=== PATIENT | male | born 1930 | race Caucasian/White ===

== ENCOUNTER 2018-04-28 19:50 | Inpatient (IN) | payer MEDICARE, MEDICAID ==
--- NOTE | 2018-04-28 20:27 | RAD ---
FRONTAL RADIOGRAPH CHEST PORTABLE SUPINE: 04/28/18 COMPARISON: 08/31/16 HISTORY: Found unresponsive. Supine imaging is provided, limiting assessment for pneumothorax and pleural fluid. Midline sternotom y wires and mediastinal clips are present. The lungs appear mildly hyperinflated with no focal consol idation or alveolar edema. Nodular density in right lung base likely represents a nipple shadow. IMPRESSION: No acute findings. POS: [facility]
[2018-04-28 20:46] LABS: Hemoglobin 15.3 g/dL (14.0-18.0); Mean Corpuscular HGB CONC 33.1 g/dL (32.0-36.0); Mean Corpuscular Hemoglobin 32.3 pg (27.0-31.0); Mean Corpuscular Volume 97.5 fl (80.0-94.0); Mean Platelet Volume 9.8 fL (7.4-10.4); Platelet Count 145 thou/uL (130-400); Red Blood Cell (RBC) Count 4.75 mill/uL (4.70-6.10); White Blood Cell (WBC) Count 21.9 thou/uL (4.8-10.8)
--- NOTE | 2018-04-28 20:58 | CT ---
CERVICAL SPINE CT WITHOUT CONTRAST 04/28/18 COMPARISON: None. HISTORY: Unresponsive patient, dehydration. TECHNIQUE: Serial axial CT imaging at 2.5 mm intervals from skull base through lung apices without contrast. Cor onal and sagittal reformatted imaging obtained. FINDINGS: C1 ring is intact. Craniocervical junction, dens, C1-2 articulation, occipital condyles, and cervicot horacic junction demonstrate no acute findings. There is diffuse osteopenia. Imaged lung apices unrem arkable. Multilevel mild bilateral uncovertebral osteophyte formation noted. There is disc space narrowing wit h degenerative end plate change at C3-4, C4-5, C5-6 and C6-7. No prevertebral soft tissue swelling. N o anterolisthesis or retrolisthesis. No displaced fracture or evidence of dislocation. IMPRESSION: Degenerative change with no acute osseous abnormality seen. POS: [facility]
--- NOTE | 2018-04-28 21:00 | CT ---
CT OF THE HEAD WITHOUT CONTRAST: 04/28/18 COMPARISON: None. HISTORY: Unresponsive, dehydration. TECHNIQUE: Serial axial CT imaging at 5 mm intervals from vertex through skull base without contrast. FINDINGS: The imaged paranasal sinuses/mastoid air cells are well aerated. There is no displaced calvarial frac ture. There is no intracranial hemorrhage, midline shift, or mass effect. There is diffuse cerebral volume loss with associated prominence of the CSF containing spaces. IMPRESSION: Cerebral volume loss with no intracranial hemorrhage or displaced calvarial fracture. POS: [facility]
[2018-04-28 21:06] LABS: Band 7 % (5-11); Lymphocytes 4 % (21-51); MDiff Complete? YES; Monocytes 22 % (0-10); Neutrophil 67 % (42-75); PLT Morphology Comment Appears Adequate; RBC Morphology Normal
[2018-04-28 21:15] LABS: CKMB 15.3 ng/mL (0-6.6); Troponin I 0.737 ng/mL (< 0.028)
[2018-04-28 21:15] LABS: ALT (SGPT) 50 U/L (8-55); AST (SGOT) 45 U/L (5-34); Albumin 3.1 g/dL (3.4-4.8); Alkaline Phosphatase 56 U/L (40-150); Anion Gap 22 mmol/L (10-20); BUN (Urea Nitrogen) 121 mg/dL (8.4-25.7); CK (CPK) 1363 U/L (30-200); Calc. Creatinine Clearance 0 mL/min (70-130); Calcium 8.5 mg/dL (7.8-10.44); Carbon Dioxide 14 mmol/L (23-31); Chloride 133 mmol/L (98-107); Estimated GFR-MDRD 6; Glucose 145 mg/dL (83-110); Potassium 4.1 mmol/L (3.5-5.1); Protein, Total 6.1 g/dL (5.8-8.1); Sodium 165 mmol/L (136-145)
[2018-04-28] MEDS ORDERED: Diltiazem HCl 125 MG, Admixture Fee 1 EACH in Sodium Chloride 0.9% 100 ML IVPB SCH (21:45)
[2018-04-28 22:04] LABS: Acetaminophen Less than 6.0 mcg/mL (10.0-30.0); Alcohol Less than 10 mg/dL (Less than 10); Salicylate Less than 8.0 mg/dL (15.0-30.0)
--- NOTE | 2018-04-28 22:26 | CT ---
CT OF ABDOMEN AND PELVIS 04/28/18 COMPARISON: None. HISTORY: Unresponsive patient, tachycardia, dehydration. TECHNIQUE: Serial axial CT imaging obtained at 5 mm intervals from the lung bases through the pubic symphysis wi thout contrast. Coronal reformatted imaging obtained. FINDINGS: Lack of contrast media limits assessment of the viscera, bowel, vascular structures and for lymphaden opathy. Midline sternotomy wires are visualized. Imaged lung bases unremarkable. No free intraperitoneal air or fluid. Gallbladder is mildly distended. Liver, spleen, pancreas, adrenal glands, and kidneys are unremarkabl e. There is mild fatty atrophy of the pancreas. Urinary bladder is mildly thick walled. There is a punctate focus of gas within the ventral aspect of the urinary bladder on image 68. Question recent Traore catheterization. Otherwise, fistulous communi cation with bowel is a possibility. Prostate gland is mildly prominent. Extensive diverticulosis of t he sigmoid colon noted with no evidence for diverticulitis. The appendix appears grossly unremarkable. There are a few distal decompressed small bowel loops which demonstrate mild wall prominence which ma y be on the basis of underdistention or thickening. There is venous gas noted in bilateral inguinal r egions, presumably associated with intravenous access. There is extensive atherosclerotic calcificati on of the abdominal aorta and its branches. Osseous structures demonstrate no acute findings. IMPRESSION: 1. Wall prominence of multiple distal small bowel loops which could signify underdistention or t hickening on the basis of enteritis. No free intraperitoneal air or evidence of bowel obstruction. 2. Diverticulosis without evidence for diverticulitis. 3. Atherosclerotic disease of the aorta and its branches. 4. Punctate focus of gas within the urinary bladder. POS: [facility]
[2018-04-28] MEDS ORDERED: Enoxaparin Sodium 60 MG/0.6 ML SYRINGE ONE (22:39)
[2018-04-28 23:10] LABS: Bilirubin Moderate (Negative); Blood, Urine Large (Negative); Glucose, Urine (Dipstick) Negative (Negative); Leukocyte Large (Negative); Nitrite Positive (Negative); Protein, Urine (Dipstick) 100 mg/dL (Neg-Trace); Specific Gravity, Urine 1.025 (1.005-1.030)
[2018-04-28 23:11] LABS: Pathc Cast-AUWi Flag 0.29 (0-2.49)
[2018-04-28 23:14] LABS: Clarity Cloudy (Clear)
[2018-04-28 23:18] LABS: Amphetamine Not Detected (NotDetected); Barbiturates Screen Not Detected (NotDetected); Benzodiazepine Screen Not Detected (NotDetected); Cocaine Metabolite Screen Not Detected (NotDetected); Medtox Control Line Valid? VALID (VALID); Medtox Reader # READER 1; Methadone Not Detected (NotDetected); Methamphetamine Not Detected (NotDetected); Opiate Screen Not Detected (NotDetected); Oxycodone Screen Not Detected (NotDetected); Phencyclidine (PCP) Not Detected (NotDetected); THC/Cannabinoid Screen Not Detected (NotDetected); Tricyclic Screen Not Detected (NotDetected)
[2018-04-28 23:22] LABS: RBC/HPF GREATER THAN 50-TNTC HPF (0-3)
[2018-04-28 23:23] LABS: Squamous Epithelial None Seen HPF (0-3)
[2018-04-28 23:24] LABS: Bacteria/HPF 2+ HPF (None Seen)
[2018-04-28 23:26] LABS: Hyaline Casts/LPF 7-10 HYALINE CAST LPF (0-3 Hyaline)
[2018-04-28] MEDS ORDERED: cefTRIAXone\\ROCEPHIN 2 GM in Sodium Chloride 0.9% 100 ML IVPB SCH (23:45)
[2018-04-29 01:15] LABS: Lactic Acid 4.1 mmol/L (0.5-2.2)
[2018-04-29] MEDS ORDERED: Amiodarone HCl 150 MG, Admixture Fee 1 EACH in Dextrose 5% in Water 100 ML IVPB SCH (02:30)
[2018-04-29 03:07] LABS: ALT (SGPT) 50 U/L (8-55); AST (SGOT) 59 U/L (5-34); Alkaline Phosphatase 54 U/L (40-150); Bilirubin, Direct 1.3 mg/dL (0.1-0.3); Bilirubin, Total 1.8 mg/dL (0.2-1.2); Magnesium 2.8 mg/dL (1.6-2.6); Protein, Total 5.7 g/dL (5.8-8.1)
[2018-04-29] MEDS: Amiodarone HCl 450 MG, Admixture Fee 1 EACH in Dextrose 5% in Water 250 ML IVPB SCH (10:41)
[2018-04-29] MEDS ORDERED: hydrALAZINE 20 MG/ML VIAL SLOW IVP PRN (12:44)
[2018-04-29] MEDS ORDERED: Ondansetron HCl/PF 4 MG/2 ML Vial IVP PRN (12:44)
[2018-04-29] MEDS ORDERED: cloNIDine 0.1 MG TAB PO PRN (12:44)
[2018-04-29] MEDS ORDERED: Acetaminophen 500 MG TAB PO PRN (12:44)
[2018-04-29] MEDS ORDERED: Ondansetron ODT 4 MG TAB PO PRN (12:44)
[2018-04-29 13:36] LABS: Hemoglobin 15.5 g/dL (14.0-18.0); Mean Corpuscular Hemoglobin 32.7 pg (27.0-31.0); Mean Corpuscular Volume 99.2 fl (80.0-94.0); Mean Platelet Volume 10.8 fL (7.4-10.4); Platelet Count 145 thou/uL (130-400); RBC Distribution Width 13.3 % (11.5-14.5); Red Blood Cell (RBC) Count 4.74 mill/uL (4.70-6.10); White Blood Cell (WBC) Count 40.5 thou/uL (4.8-10.8)
[2018-04-29 13:41] LABS: Anion Gap 21 mmol/L (10-20); Calc. Creatinine Clearance 5 mL/min (70-130); Calcium 8.2 mg/dL (7.8-10.44); Carbon Dioxide 12 mmol/L (23-31); Estimated GFR-MDRD 6; Glucose 142 mg/dL (83-110); Potassium 4.7 mmol/L (3.5-5.1); Sodium 160 mmol/L (136-145)
[2018-04-29 13:44] LABS: Band 13 % (5-11); Burr Cells SLIGHT = 2-5 cells (100X) (0-1/hpf); Lymphocytes 1 % (21-51); MDiff Complete? YES; Monocytes 11 % (0-10); Neutrophil 75 % (42-75); PLT Morphology Comment Appears Adequate
[2018-04-29] MEDS ORDERED: Vancomycin HCl 1 GM in Sodium Chloride 0.9% 250 ML 250 ML IVPB SCH (13:45)
[2018-04-29 13:50] LABS: Chloride 132 mmol/L (98-107)
[2018-04-29 13:52] LABS: BUN (Urea Nitrogen) 130 mg/dL (8.4-25.7)
[2018-04-29] MEDS: Sodium Chloride 0.9% 1,000 ML IV SCH ×2 (14:00→22:15)
--- NOTE | 2018-04-29 14:13 | RAD ---
LEFT HIP 2 VIEWS: Date: 04/29/18 HISTORY: Hip pain status post fall. FINDINGS: There are no signs of fracture or dislocation. IMPRESSION: Negative left hip. POS: [facility]
[2018-04-29] MEDS ORDERED: Vancomycin HCl 1 GM in Premix Bag 1 BAG IVPB SCH (15:00)
--- NOTE | 2018-04-29 15:11 | HP ---
DATE OF ADMISSION: 04/29/2018 PRIMARY CARE PHYSICIAN: Dr. Sreekanth Bailey. CHIEF COMPLAINT: Unresponsive, found down. HISTORY OF PRESENT ILLNESS: This is an 88-year-old male who apparently was found by his ne joselito in a converted school bus to dwelling where the patient was unresponsive on the floor of the [facility]. The patient apparently was last seen normal 1 week prior to the neighbor finding him on the floo r of the bus. The patient was noted severely dehydrated as well as a core temperature of 99.9 degree s Fahrenheit. The patient apparently had been living in the converted bus to dwelling without family or close contacts. The patient apparently was completely naked when found according to EMS reports. The patient is unable to provide any significant history due to altered mentation and no family wit h the patient. EMS initially reported the patient was tachycardic and was receiving intravenous flui ds. The patient was also incidentally noted in atrial fibrillation with rapid ventricular response. The patient was given diltiazem bolus and then infusion in the emergency room and then transitioned to amiodarone. The patient was noted with multiple metabolic derangements on screening survey showin g hypernatremia with sodium of 165. Creatinine was elevated 8.45 and lactic acidosis was noted up to 9.0. The patient also received Rocephin 2 grams x1 dose after concern for urinary tract infection. PAST MEDICAL HISTORY: 1. Benign prosthetic hyperplasia. 2. History of urethral strictures. 3. Aortic stenosis, status post mechanical aortic valve replacement, on chronic anticoagulation with Coumadin. PAST SURGICAL HISTORY: 1. Status post mechanical aortic valve replacement at age 71. 2. History of urethral strictures status post laser ablation and transurethral resection of the pros ledesma. 3. Status post dental extraction. 4. Status post tonsillectomy. CURRENT MEDICATIONS: Unobtainable due to patient's altered mentation. ALLERGIES: No known drug allergies. FAMILY HISTORY: Mother at age 82. Father at age 62 of leukemia. SOCIAL HISTORY: The patient is , now single. 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 [employer] . No current alcohol, tobacco or illicit drug use. Resides indepe ndently in the [place] area. REVIEW OF SYSTEMS: Unobtainable due to patient's altered mentation. PHYSICAL EXAMINATION: VITAL SIGNS: Currently, blood pressure 115/57, pulse 73, respiratory rate 26, temperature 97.8 degre es Fahrenheit, O2 saturation 100% on room air. GENERAL APPEARANCE: This is an 88-year-old male, sitting on the hospital bed, alert and or iented x1 to name. Disheveled. HEENT: Pupils are equal, round, and reactive to light and accommodation. Extraocular muscles are in tact. Conjunctival injection noted in the left eye with mild crusting and exudate. Nares patent. O P: Poor dentition with approximately three teeth noted. Oral mucosa dry with dried mucus in the hyp opharynx. NECK: Supple, no cervical adenopathy, no thyromegaly, no carotid bruits. There is no JVD appreciate d. Cervical spine with full active and passive range of motion. CHEST: Lungs are clear to auscultation bilaterally. CARDIOVASCULAR: S1, S2 without noted murmur, rub or gallop. ABDOMEN: Scaphoid, tender to palpation diffusely. No palpable mass. Bowel sounds are positive. EXTREMITIES: Generalized muscle atrophy noted. Pulses palpable distally at the dorsalis pedis, post erior tibial, and popliteal arteries bilaterally. Capillary refill less than 2 seconds. GENITOURINARY: Traore catheter in place with dark osmel urine. SKIN: Abrasion and pressure ulcer noted at the sacrum and left greater trochanter region. NEUROLOGIC: Cranial nerves II-XII are grossly intact. Patient is alert and oriented x1 to name. No t observed ambulatory. Moves extremities on command. PERTINENT LABORATORY AND X-RAY FINDINGS: Sodium 165, potassium 4.1, chloride 133, CO2 of 14, anion g ap 22, BUN 121, creatinine 8.45, estimated GFR of 6, glucose 145. Lactic acid ranged between 4.1-9.0 , calcium 8.5, magnesium 2.8, total bilirubin ranged between 1.8-2.0, AST ranged between 45-59, total CK 1363. Troponin I 0.737. Albumin ranged between 3.0-3.1. TSH 0.52. CBC showed a white blood ce ll count 21.9, hemoglobin 15, hematocrit 46, MCV 98, platelet count 145 with 67% neutrophils. Urinal ysis positive for nitrite and bilirubin, large blood noted. Positive leukocyte esterase. Urine micr oscopy shows greater than 50 to too numerous to count rbc's and wbc's per high power field. Urine ba cteria 2+. Urine drug screen dated 04/28/2018 negative. Plasma alcohol level less than 10. EKG janel ed 04/28/2018 by my interpretation shows atrial fibrillation with rapid ventricular response, heart r ates in the 140s. Normal R-wave progression noted in the precordial leads. Normal axis. No acute S T-T wave changes appreciated. Telemetry monitoring currently shows sinus mechanism with heart rates in the 70s. Portable chest x-ray dated 04/28/2018, showed no acute cardiopulmonary process. CT of t he brain without contrast dated 04/28/2018 showed generalized volume loss without acute intracranial process. CT of the cervical spine dated 04/28/2018 showed degenerative changes without acute osseous abnormality. CT of the abdomen and pelvis dated 04/28/2018 showed no evidence of free intraperitone al air or bowel obstruction. Diverticulosis without diverticulitis noted. Wall prominence of the di stal small bowel noted. ASSESSMENT AND PLAN: 1. Acute metabolic/toxic encephalopathy. The patient will be admitted to the telemetry unit. Multi factorial process including severe dehydration, acute kidney injury, and suspected fall. We will con tinue supportive management for the problems outlined as stated below. Continue to monitor neurologi c status. 2. Severe dehydration. We will continue intravenous normal saline at 125 mL per hour. Continue to monitor fluid status after resuscitation. Encourage free water intake after clearance by speech ther apy after concern for dysphagia. 3. Acute kidney injury. Multifactorial including severe dehydration and altered mental status. We will continue IV fluids as outlined previously. Avoid nephrotoxic agents and contrast media. Serial creatinine assessment. Continue Traore catheter for accurate intake and output assessment. 4. Severe hypernatremia secondarily to severe dehydration. We will continue close monitoring of sod ium values. Recheck BMP now. 5. Lactic acidosis. Suspect metabolic derangement as outlined previously. Repeat lactic acid level now. Potential influence of urinary tract infection as well as underlying metabolic derangement as outlined previously. 6. Elevated troponin I. Suspect demand ischemia in the context of atrial fibrillation and rapid kristal tricular response. We will continue troponin I trending. Check 2D transthoracic echocardiogram. 7. Atrial fibrillation with rapid ventricular response. After patient initially managed in the [facility] room with IV diltiazem, the patient transitioned to amiodarone infusion. We will continue amio darone and monitor heart rate. Check 2D transthoracic echocardiogram. Suspect underlying stressors as etiology for atrial fibrillation. 8. Rhabdomyolysis secondarily to fall and prolonged condition of being found down. We will monitor serial total CK and continue IV fluids as outlined previously. 9. Urinary tract infection. Suspected given initial urinalysis. Urine culture pending. Continue R ocephin 2 g IV q.24 hours. 10. Abdominal pain. Exact etiology unclear. Suspect multifactorial given patient's presentation. Continue serial abdominal exams. CT of the abdomen and pelvis without an acute process identified. 11. Prophylaxis. Sequential compression devices while in bed. Pepcid 20 mg p.o. b.i.d. PT evaluat ion for functional assessment. 12. Code status is FULL. Surrogate medical decision maker not identified.
[2018-04-29] MEDS: Piperacillin/Tazobactam 2.25 GM in Sodium Chloride 0.9% 100 ML IVPB SCH ×2 (15:17→22:18)
[2018-04-29 15:41] LABS: Troponin I 1.346 ng/mL (< 0.028)
[2018-04-29 17:32] LABS: Lactic Acid 2.7 mmol/L (0.5-2.2)
[2018-04-29 17:50] LABS: Critical Call Chem Troponin I RESULT DECREASING
[2018-04-29] MEDS ORDERED: Aspirin 325 MG TAB PO SCH (20:30)
[2018-04-29] MEDS ORDERED: Famotidine 20 MG TAB PO SCH (21:00)
[2018-04-29] MEDS ORDERED: cefTRIAXone\\ROCEPHIN 2 GM in Sodium Chloride 0.9% 100 ML IVPB SCH (21:00)
[2018-04-29] MEDS ORDERED: Aspirin 300 MG Suppository PR SCH (22:30)
[2018-04-30 05:28] LABS: Band 15 % (5-11); Hemoglobin 13.2 g/dL (14.0-18.0); Lymphocytes 15 % (21-51); MDiff Complete? YES; Mean Corpuscular Hemoglobin 31.6 pg (27.0-31.0); Mean Corpuscular Volume 98.7 fl (80.0-94.0); Monocytes 9 % (0-10); Neutrophil 61 % (42-75); PLT Morphology Comment Appears Decreased; Platelet Count 120 thou/uL (130-400); RBC Distribution Width 13.3 % (11.5-14.5); Red Blood Cell (RBC) Count 4.18 mill/uL (4.70-6.10); White Blood Cell (WBC) Count 29.6 thou/uL (4.8-10.8)
[2018-04-30 05:42] LABS: BUN (Urea Nitrogen) 142 mg/dL (8.4-25.7)
[2018-04-30 05:52] LABS: ALT (SGPT) 47 U/L (8-55); AST (SGOT) 35 U/L (5-34); Albumin 2.5 g/dL (3.4-4.8); Alkaline Phosphatase 50 U/L (40-150); Anion Gap 20 mmol/L (10-20); Bilirubin, Total 0.8 mg/dL (0.2-1.2); Calc. Creatinine Clearance 5 mL/min (70-130); Calcium 7.8 mg/dL (7.8-10.44); Carbon Dioxide 12 mmol/L (23-31); Chloride 134 mmol/L (98-107); Estimated GFR-MDRD 6; Globulin 2.6 g/dL (2.4-3.5); Glucose 109 mg/dL (83-110); Protein, Total 5.1 g/dL (5.8-8.1); Sodium 161 mmol/L (136-145)
[2018-04-30] MEDS: Sodium Chloride 0.9% 1,000 ML IV SCH (06:31)
[2018-04-30] MEDS: Piperacillin/Tazobactam 2.25 GM in Sodium Chloride 0.9% 100 ML IVPB SCH ×3 (06:33→21:00)
[2018-04-30] MEDS: Amiodarone HCl 450 MG, Admixture Fee 1 EACH in Dextrose 5% in Water 250 ML IVPB SCH (06:36)
[2018-04-30] MEDS: Aspirin 325 mg Enteric Coated Tablet PO SCH (09:19)
[2018-04-30] MEDS ORDERED: Fentanyl 100 MCG/2 ML VIAL SLOW IVP PRN (09:40)
--- NOTE | 2018-04-30 09:41 | PDOC.PN ---
- Subjective Encounter Start Date: 04/30/18 (f/u hypernatremia) Encounter Start Time: 09:38 Subjective: Pt able to say a few words, awake, responds to commands -: denies any pain - Objective Resuscitation Status: Resuscitation Status FULL:Full Resuscitation Vital Signs & Weight: Vital Signs (12 hours) Temp Pulse Resp BP Pulse Ox 04/30/18 08:50 98.1 F 61 18 120/60 97 04/30/18 04:00 97.6 F 59 L 20 113/54 L 100 I&O: 04/29/18 04/30/18 05/01/18 06:59 06:59 06:59 Intake Total 3800 Output Total 850 Balance 2950 Result Diagrams: 04/30/18 04:47 04/30/18 17:14 EKG Reviewed by me: Yes (tele - sinus 60's) Phys Exam - Physical Examination Constitutional: NAD left eye partial ptosis, erythematous conjunctiva Respiratory: no wheezing, no rales, no rhonchi, clear to auscultation bilateral Cardiovascular: RRR, no significant murmur Gastrointestinal: soft, no distention, positive bowel sounds ttp throughout abd, no palpable abnormality, rebound or guarding Musculoskeletal: no edema Neurological: non-focal, moves all 4 limbs Deviation from normal: speech slightly slowed and garbled Deviation from normal: skin ulcer left hip Dx/Plan (1) Encephalopathy acute Code(s): G93.40 - ENCEPHALOPATHY, UNSPECIFIED Status: Acute (2) Hypernatremia Code(s): E87.0 - HYPEROSMOLALITY AND HYPERNATREMIA Status: Acute (3) Severe dehydration Code(s): E86.0 - DEHYDRATION Status: Acute (4) NENITA (acute kidney injury) Code(s): N17.9 - ACUTE KIDNEY FAILURE, UNSPECIFIED Status: Acute (5) Elevated troponin Code(s): R74.8 - ABNORMAL LEVELS OF OTHER SERUM ENZYMES Status: Acute (6) Rhabdomyolysis Code(s): M62.82 - RHABDOMYOLYSIS Status: Acute - Plan * ? of sepsis as source of pt being down - continue zosyn. Pt also with abd pain and enteritis on CT scan - continue abx, npo for now * encephalopathy - improved today, continue ivf, abx, speech therapy and pt ordered * * a fib - resolved, echo and cards consult ordered * * d/c rocephin as pt on zosyn * left eye conjunctivitis - erythromycin ointment * hypernatremia with NENITA - renal ultrasond, nephro consult, and change fluids to D5W. recheck bmp at 17:00 today * * dvt prophy - start heparin due to renal function * gi prophy - change to IV protonix * code status - presumed full * * pt remains at high risk in current condition.
[2018-04-30] MEDS ORDERED: Erythromycin Base 0.5% Oint 1 GM TUBE L EYE SCH (09:45)
[2018-04-30] MEDS ORDERED: Dextrose 5% in Water 1,000 ML IV SCH ×3 (09:45→18:20)
[2018-04-30] MEDS ORDERED: Pantoprazole 40 MG VIAL IVP SCH (10:00)
[2018-04-30] MEDS ORDERED: Heparin 5,000 UNITS/ML VIAL SC SCH (10:00)
--- NOTE | 2018-04-30 11:54 | ULT ---
BILATERAL RENAL ULTRASOUND: Date: 04/30/18 PROVIDED CLINICAL HISTORY: Acute renal failure. FINDINGS: Left kidney measures about 9.5 x 5.6 x 5.3 cm and demonstrates no evidence for hydronephrosis or mass . Right kidney measures about 9.8 x 4.5 x 4.8 cm and demonstrates no evidence for hydronephrosis or mas s. The urinary bladder is decompressed by a Traore catheter. Gallbladder appears moderately distended wit h internal sludge. IMPRESSION: No evidence for hydronephrosis. POS: [facility]
--- NOTE | 2018-04-30 14:39 | CON ---
DATE OF CONSULTATION: 04/30/2018 NEPHROLOGY CONSULT NOTE CONSULTING PHYSICIAN: Isabel Riggins M.D. REASON FOR CONSULTATION: Acute kidney injury. REASON FOR ADMISSION: Altered mentation. HISTORY OF PRESENT ILLNESS: This is an 88-year-old male who was found down at home and brought to [facility] with altered mentation and patient does have history of BPH, urethral strictures, aortic s tenosis. He was found to have a sodium level of 165 and creatinine of 8.45 and Nephrology is consult ed. CK level was 1363. The patient is very sleepy, very lethargic and somnolent and not able to giv e history. No chest pain or shortness of breath reported. No fever. PAST MEDICAL HISTORY: Positive for BPH, urethral strictures, and aortic stenosis. PAST SURGICAL HISTORY: Status post mechanical aortic valve replacement, status post dental extractio n, and tonsillectomy. HOME MEDICATIONS: Not available at this time include tamsulosin, simvastatin, [place] and Coumadin. ALLERGIES: No known drug allergies. SOCIAL HISTORY: No smoking, alcohol, or illicit drug abuse. FAMILY HISTORY: No history of any kidney disease. REVIEW OF SYSTEMS: Could not be obtained. PHYSICAL EXAMINATION: GENERAL: Elderly male, somnolent. VITAL SIGNS: Temperature 98.1, pulse 61, respiratory rate 18, blood pressure 124/57. HEENT: Atraumatic, normocephalic. Oral mucosa is moist. NECK: Supple, no masses. CARDIOVASCULAR SYSTEM: S1, S2 heard. RESPIRATORY: Clear with crackles. GASTROINTESTINAL: Abdomen is soft. MUSCULOSKELETAL: 1+ edema. DERMATOLOGIC: No skin rash. NEUROLOGICAL: Somnolent and not responding. LABORATORY AND X-RAY FINDINGS: Hemoglobin is 13.2, potassium is 5.0, sodium 161, BUN 142, and creati nine is 8.2. ASSESSMENT AND PLAN: 1. Acute kidney injury with possible uremia. No acute indication for dialysis. Plan is to continue on IV fluids. Agree with D5W. 2. Hypernatremia. 3. Hyperchloremia. 4. Mild hyperkalemia. 5. Uremia. He made 850 mL of urine per the records and plan is to continue IV fluids, increase D5W to 125 mL per hour with close monitoring of sodium. 6. Metabolic acidosis, most likely secondary to hyperchloremia. 7. Edema, controlled. 8. Hypoalbuminemia. We will check urine studies. 9. Pyuria, rule out any infection. Follow up cultures. 10. Continue supportive care, increase D5W and monitor sodium closely. We will follow. Thank you for the consult.
[2018-04-30] MEDS ORDERED: Acetaminophen 1,000 MG in Premix Bag 1 BAG IVPB PRN (15:00)
[2018-04-30 17:52] LABS: Anion Gap 19 mmol/L (10-20); Calc. Creatinine Clearance 5 mL/min (70-130); Calcium 8.2 mg/dL (7.8-10.44); Carbon Dioxide 13 mmol/L (23-31); Chloride 134 mmol/L (98-107); Estimated GFR-MDRD 7; Glucose 124 mg/dL (83-110); Potassium 4.8 mmol/L (3.5-5.1); Sodium 161 mmol/L (136-145)
[2018-04-30 17:59] LABS: BUN (Urea Nitrogen) 142 mg/dL (8.4-25.7)
--- NOTE | 2018-04-30 18:23 | PDOC.EVN ---
Event Note - Event Note Event Note: Called by RN for labs unchanged - discussed iwth Dr. Chopra and will increase D5W to 150 ml/hr, and request NG tube with free water through the NG tube at 200 ml every 4 hours. Will need confirmation imaging prior to use of NG tube. Spoke with RN/Sanjana about orders, no further questions. 16:42 - In thinking more about the above plan, will hold on NGT as the pt has enteritis and is on bowel rest. Will instead increase the NS to 200 ml/hr at least overnight wiht next bmp in AM. I communicated this with Dr. Chopra.
[2018-04-30] MEDS: Dextrose 5% in Water 1,000 ML IV SCH (20:57)
[2018-04-30] MEDS: Heparin 5,000 UNITS/ML VIAL SC SCH (20:57)
[2018-04-30] MEDS: Erythromycin Base 0.5% Oint 1 GM TUBE L EYE SCH (20:58)
[2018-05-01] MEDS: Dextrose 5% in Water 1,000 ML IV SCH ×5 (02:08→18:03)
[2018-05-01] MEDS: Piperacillin/Tazobactam 2.25 GM in Sodium Chloride 0.9% 100 ML IVPB SCH ×3 (05:29→20:40)
[2018-05-01 06:05] LABS: Anion Gap 16 mmol/L (10-20); Calc. Creatinine Clearance 6 mL/min (70-130); Calcium 8.2 mg/dL (7.8-10.44); Carbon Dioxide 14 mmol/L (23-31); Estimated GFR-MDRD 7; Glucose 177 mg/dL (83-110); Potassium 4.2 mmol/L (3.5-5.1); Sodium 156 mmol/L (136-145)
[2018-05-01 06:12] LABS: Chloride 130 mmol/L (98-107)
[2018-05-01 06:14] LABS: Band 19 % (5-11); Hemoglobin 13.1 g/dL (14.0-18.0); Lymphocytes 4 % (21-51); MDiff Complete? YES; Mean Corpuscular HGB CONC 31.7 g/dL (32.0-36.0); Mean Corpuscular Hemoglobin 31.5 pg (27.0-31.0); Mean Corpuscular Volume 99.4 fl (80.0-94.0); Mean Platelet Volume 11.4 fL (7.4-10.4); Monocytes 12 % (0-10); Neutrophil 65 % (42-75); PLT Morphology Comment Appears Decreased; Platelet Count 95 thou/uL (130-400); RBC Distribution Width 13.8 % (11.5-14.5); Red Blood Cell (RBC) Count 4.15 mill/uL (4.70-6.10); White Blood Cell (WBC) Count 20.3 thou/uL (4.8-10.8)
[2018-05-01 06:18] LABS: BUN (Urea Nitrogen) 131 mg/dL (8.4-25.7)
--- NOTE | 2018-05-01 08:12 | CON ---
DATE OF CONSULTATION: 05/01/2018 HISTORY: Thad Self is an 88-year-old white male admitted after being found down. I did see him a few times in 03/2014 and 05/2014. Pertinent cardiac history is that he underwent aortic valve replacement in 07/2001 for aortic stenosis at [facility] in [place]. Apparently no CABG was done according to his history. Requests were made for those records; however, I never did receive any. On echo at that time he had ejection fraction of 45-50% with moderate to severe mitral regurgitation, mild to moderate aortic regurgitation; however, it was hard to delineate this was a perivalvular leak or valvular malfunction. There was also moderate pulmonic regurgitation, mild tricuspid regurgitation. In 05/2014 he was started on simvastatin, but he never did return for followup after that. Mr. Self was apparently found by his neighbor in his converted school bus that he lives in. He was unresponsive on the floor. He had a core temperature of 99.9 degrees Fahrenheit. The patient is unable to provide any insight into exactly what happened. He also was noted to be in atrial fibrillation with rapid ventricular response. He was given diltiazem bolus and placed on amiodarone. He has since had episodes of junctional bradycardia with pauses up to 2.1 seconds and the amiodarone was discontinued. Creatinine was elevated at 8.5, lactic acidosis up to 9.0. The patient denies any chest discomfort, shortness of breath, or peripheral edema. PAST MEDICAL HISTORY: Aortic stenosis, status post mechanical aortic valve replacement, benign prostatic hypertrophy, and history of urethral strictures, hypercholesterolemia. OPERATIONS: AVR with mechanical aortic valve, but apparently no bypasses, left eye surgery. MEDICATIONS: [place] q.6 hours p.r.n., simvastatin 40 at bedtime, Flomax 0.4 daily, warfarin 2.5 daily. ALLERGIES: None. SOCIAL HISTORY: He does not smoke or drink. He is a retired geological engineer. FAMILY HISTORY: Negative for coronary artery disease. REVIEW OF SYSTEMS: Unobtainable due to patient's mental issues at the present time. PHYSICAL EXAMINATION: VITAL SIGNS: Blood pressure 108/54, pulse of 43, junctional rhythm on the monitor. HEENT: Left eye inflammation. CHEST: Clear. CARDIAC: S1 is normal. There is a prosthetic S2 click. There is a 2/6 systolic ejection murmur. ABDOMEN: Normal bowel sounds without tenderness. EXTREMITIES: Revealed no edema. NEUROLOGIC: The patient is awake and alert. Moves all extremities which apparently is a dramatic improvement from the previous day. SKIN: Warm and dry. LABORATORY: EKG on admission revealed atrial fibrillation with rapid ventricular response of 137 per minute, nonspecific ST and T-wave changes. He converted to sinus rhythm, but now is apparently in a junctional rhythm with rates in the 40s and occasional pauses up to 2.1 seconds. INR has not been obtained. White count on the second day of admission was 40,500. Now it is down to 20,300, hemoglobin 13.1, hematocrit 41.2, platelets 95,000. Sodium was 165 on admission and is now down to 156, potassium 4.2, chloride 130, carbon dioxide 14, BUN 131, creatinine 7.43. Highest BUN has been 142. The highest creatinine has been 8.45. In 03/2018 his creatinine was 1.62. Troponin I is up to 1.346. TSH is normal. CK-MB 15.3. Total CK 1363. Urinalysis revealed large blood, moderate bilirubin, positive nitrite, large leukocyte esterase, greater than 50 RBCs and greater than 50 WBCs per high powered field, bacteria 2 +. Urine drug screen is unremarkable. IMPRESSION: 1. Elevated troponin I, probably due to demand ischemia and his acute kidney injury. 2. Metabolic encephalopathy. 3. Severe dehydration and hypernatremia. 4. Acute kidney injury. 5. Lactic acidosis. 6. Atrial fibrillation with fast ventricular response converted to sinus rhythm and now is in junctional bradycardia. 7. Rhabdomyolysis secondary to the patient being found down. 8. Probable urinary tract infection. 9. Status post aortic valve replacement, but no bypasses. There is a mechanical valve and currently is on heparin subcu, although his platelet count has dropped. RECOMMENDATIONS: INR has not been checked and this will be checked in the morning. His platelet count will be watched closely and may need to transition back to Coumadin. Echocardiogram has been performed; however, due to malfunction of the computer system cannot be interpreted at this time. We will follow the patient with you. JR
[2018-05-01] MEDS: Aspirin 325 mg Enteric Coated Tablet PO SCH (09:08)
[2018-05-01] MEDS: Heparin 5,000 UNITS/ML VIAL SC SCH (09:08)
[2018-05-01] MEDS: Pantoprazole 40 MG VIAL IVP SCH (09:10)
[2018-05-01] MEDS: Erythromycin Base 0.5% Oint 1 GM TUBE L EYE SCH ×2 (09:10→20:39)
--- NOTE | 2018-05-01 17:32 | RAD ---
RADIOGRAPH ABDOMEN TWO VIEWS: 05/01/2018 4:57 p.m. HISTORY: An 88-year-old male with generalized acute abdominal pain. Rule out free air and rule out obstructio n. FINDINGS: On the left lateral decubitus view, there is no convincing evidence of free intraperitoneal air, and there are no differential air-fluid levels. There is gas in nondilated loops of colon, with relative ly little gas in the small intestine. No evidence of organomegaly. IMPRESSION: 1. No evidence of pneumoperitoneum. 2. Nonspecific bowel gas pattern. POS: [facility]
[2018-05-01] MEDS: cefTRIAXone\\ROCEPHIN 2 GM in Sodium Chloride 0.9% 100 ML IVPB SCH (18:03)
--- NOTE | 2018-05-01 18:29 | PDOC.PN ---
- Subjective Encounter Start Date: 05/01/18 Encounter Start Time: 16:30 Subjective: f/u for acute encephalopathy, severe dehydration, NENITA and elevated troponin -: Feels more awake today but has abd pain. No N/V/F. Continues on IVF's -: and Zosyn. - Objective Resuscitation Status: Resuscitation Status FULL:Full Resuscitation MAR Reviewed: Yes Vital Signs & Weight: Vital Signs (12 hours) Temp Pulse Resp BP Pulse Ox 05/01/18 15:50 97.9 F 44 L 20 125/62 94 L 05/01/18 12:05 97.9 F 42 L 18 127/57 L 96 05/01/18 09:05 97.5 F L 40 L 18 111/54 L 95 Weight Admit Weight 126 lb 3.2 oz Weight 136 lb 4.8 oz I&O: 04/30/18 05/01/18 05/02/18 06:59 06:59 06:59 Intake Total 3800 3225 Output Total 850 1750 Balance 2950 1475 Result Diagrams: 05/01/18 05:17 05/01/18 05:17 Additional Labs: Microbiology 04/28/18 23:06 Urine turk catheter Urine Culture - Final Staphylococcus haemolyticus 04/29/18 13:16 Venous blood - Right Hand Blood Culture - Preliminary NO GROWTH AT 48 HOURS 04/29/18 13:16 Venous blood - Left Hand Blood Culture - Preliminary NO GROWTH AT 48 HOURS Laboratory Tests 04/28/18 04/29/18 04/29/18 20:32 13:16 14:57 WBC 40.5 H* Plt Count 145 Band Neuts % (Manual) 13 H Sodium Carbon Dioxide Creatinine Troponin I 0.737 H* 1.346 H* 04/29/18 04/30/18 04/30/18 17:05 04:47 04:47 WBC 29.6 H Plt Count 120 L Band Neuts % (Manual) 15 H Sodium 161 H* Carbon Dioxide 12 L Creatinine 8.20 H Troponin I 1.200 H* 04/30/18 05/01/18 17:14 05:17 WBC Plt Count Band Neuts % (Manual) 19 H Sodium 161 H* Carbon Dioxide 13 L Creatinine 7.92 H Troponin I Radiology Reviewed by me: Yes (ABD x-ray - negative, non-specific bowel gas) EKG Reviewed by me: Yes (Tele - SR) Phys Exam - Physical Examination alert, responds to questions slowly L eye with erythema HEENT: PERRLA, sclera anicteric, oral pharynx no lesions Neck: no nodes, no JVD, supple, full ROM Respiratory: no wheezing, no rales, no rhonchi, clear to auscultation bilateral S1, S2 Cardiovascular: RRR, no significant murmur, no rub, gallop TTP in LLQ Gastrointestinal: soft, no distention, positive bowel sounds Musculoskeletal: no edema, pulses present Neurological: normal sensation, moves all 4 limbs A X O x 1 Skin: no rash, normal turgor, cap refill <2 seconds Deviation from normal: Turk with osmel urine Dx/Plan (1) Encephalopathy acute Code(s): G93.40 - ENCEPHALOPATHY, UNSPECIFIED Status: Acute Comment: Multifactorial including multiple metabolic derangements, slow improvement, supportive mgmt (2) Severe dehydration Code(s): E86.0 - DEHYDRATION Status: Acute Comment: Improved, continue IVF's , encourage increased free H2O intake when tolerating po (3) NENITA (acute kidney injury) Code(s): N17.9 - ACUTE KIDNEY FAILURE, UNSPECIFIED Status: Acute Comment: Slow improvement, Renal sono negative, avoid nephrotoxic meds and limit contrast exposure, serial monitoring (4) Elevated troponin Code(s): R74.8 - ABNORMAL LEVELS OF OTHER SERUM ENZYMES Status: Acute Comment: Secondary to demand ischemia and NENITA, supportive mgmt, ASA 325mg daily (5) Hypernatremia Code(s): E87.0 - HYPEROSMOLALITY AND HYPERNATREMIA Status: Acute Comment: Improved with IVF's, serial monitoring (6) Rhabdomyolysis Code(s): M62.82 - RHABDOMYOLYSIS Status: Acute Comment: Continue IVF's, repeat CK level in am (7) A-fib Code(s): I48.91 - UNSPECIFIED ATRIAL FIBRILLATION Status: Resolved Qualifiers: Atrial fibrillation type: paroxysmal Qualified Code(s): I48.0 - Paroxysmal atrial fibrillation Comment: Resolved with supportive mgmt, continue Tele monitoring, Amiodarone gtt (8) UTI (urinary tract infection) Status: Acute Qualifiers: Urinary tract infection type: acute cystitis Comment: Suspected, continue Rocephin 2gm IV daily - Plan continue antibiotics, PT/OT, social services technician, speech therapy, respiratory therapy, DVT proph w/SCDs Continue supportive mgmt -: Decrease IVF's 125ml/h -: Continue Zosyn -: Add Rocephin 2gm IV daily -: Check Abd sono due to persistent abd pain * AM lab: BMP, CBC, CK
--- NOTE | 2018-05-01 19:53 | PRG ---
DATE OF SERVICE: 05/01/2018 SUBJECTIVE: Patient was seen and examined at bedside and overnight events noted. Patient denies any shortness of breath or chest pain or palpitation. No history of nausea or vomiting or diarrhea or f ever or chills or cramps. OBJECTIVE: GENERAL: This is a well-built male, in no apparent distress. VITAL SIGNS: Temperature 97.9, pulse 44, respiratory rate 20, blood pressure 125/62. HEENT: Atraumatic, normocephalic, oral mucosa is moist. NECK: Supple. CARDIOVASCULAR: S1, S2 heard, rate and rhythm regular. RESPIRATORY: Clear to auscultation. GASTROINTESTINAL: Abdomen is soft. MUSCULOSKELETAL: No tenderness, no edema. DERMATOLOGIC: No skin rash. NEUROLOGIC: Alert and awake and oriented x3. No focal neurologic deficits. Moving all the extremit ies. PSYCHIATRIC: Mood and affect normal. LABORATORY DATA: Sodium is 156, chloride 130, bicarbonate 14, BUN is 131, creatinine is 7.4. ASSESSMENT AND PLAN: 1. Acute kidney injury, most likely volume depletion, getting better. 2. Hypernatremia. Continue D5W. 3. Uremia. 4. Edema, controlled. 5. Hypoalbuminemia. 6. Pyuria, rule out infection. Plan is to cut down the D5W to 125 mL per hour and we will follow.
--- NOTE | 2018-05-01 20:15 | ULT ---
ULTRASOUND ABDOMEN COMPLETE: 05/01/2018 HISTORY: An 88-year-old male with generalized abdominal pain. FINDINGS: Liver: No hepatomegaly. Questionable diffuse dilation of the intrahepatic bile ducts. Gallbladder: Distended. Large volume of highly echogenic sludge. Wall thickening up to 5 mm and po ssibly greater. Unable to determine sonographic Guzmán sign because of patient's altered mental stat us. There is a small amount of pericholecystic fluid. Common duct: 8 mm. Spleen: No splenomegaly. Pancreas: Completely obscured by shadowing from bowel gas. Kidneys: No hydronephrosis. Abdominal aorta: No aneurysm. There is atherosclerosis. Inferior vena cava: Limited visualization. There are probable bilateral small pleural effusions. IMPRESSION: 1. Possibility of acute acalculous cholecystitis. Distended gallbladder filled with a large amount of echogenic sludge and associated with mural thickening and pericholecystic fluid. 2. Questionable diffuse dilation of the intrahepatic biliary tree. A contrast enhanced CT (unless c ontraindicated) may be useful to confirm or exclude this. 3. Probable small bilateral pleural effusions. JOSE Garnica POS: [facility]
[2018-05-01] MEDS ORDERED: Acetaminophen 500 MG TAB PO PRN (23:01)
[2018-05-02] MEDS: Dextrose 5% in Water 1,000 ML IV SCH ×3 (03:47→18:27)
[2018-05-02] MEDS: Piperacillin/Tazobactam 2.25 GM in Sodium Chloride 0.9% 100 ML IVPB SCH ×3 (05:11→21:38)
[2018-05-02 05:43] LABS: Prothrombin Time 44.9 SEC (12.0-14.7)
[2018-05-02 05:48] LABS: Anion Gap 16 mmol/L (10-20); BUN (Urea Nitrogen) 109 mg/dL (8.4-25.7); Band 18 % (5-11); CK (CPK) 97 U/L (30-200); Calc. Creatinine Clearance 7 mL/min (70-130); Calcium 8.1 mg/dL (7.8-10.44); Carbon Dioxide 14 mmol/L (23-31); Chloride 123 mmol/L (98-107); Eosinophils 1 % (0-10); Estimated GFR-MDRD 9; Glucose 118 mg/dL (83-110); Hemoglobin 11.7 g/dL (14.0-18.0); Lymphocytes 11 % (21-51); MDiff Complete? YES; Mean Corpuscular HGB CONC 33.2 g/dL (32.0-36.0); Mean Corpuscular Hemoglobin 32.7 pg (27.0-31.0); Mean Corpuscular Volume 98.4 fl (80.0-94.0); Mean Platelet Volume 11.3 fL (7.4-10.4); Monocytes 10 % (0-10); Neutrophil 60 % (42-75); PLT Morphology Comment Appears Decreased; Platelet Count 97 thou/uL (130-400); Potassium 3.8 mmol/L (3.5-5.1); RBC Distribution Width 13.5 % (11.5-14.5); Red Blood Cell (RBC) Count 3.57 mill/uL (4.70-6.10); Sodium 149 mmol/L (136-145); White Blood Cell (WBC) Count 11.6 thou/uL (4.8-10.8)
[2018-05-02 05:58] LABS: INR-International Normal Ratio 4.5
[2018-05-02] MEDS ORDERED: Phytonadione 10 MG/ML AMP SC SCH (06:30)
[2018-05-02] MEDS: Erythromycin Base 0.5% Oint 1 GM TUBE L EYE SCH ×2 (10:14→21:39)
[2018-05-02] MEDS: Aspirin 325 mg Enteric Coated Tablet PO SCH (10:15)
[2018-05-02] MEDS: Pantoprazole 40 MG VIAL IVP SCH (10:15)
--- NOTE | 2018-05-02 15:19 | PDOC.PN ---
- Subjective Encounter Start Date: 05/02/18 Encounter Start Time: 15:00 Subjective: f/u for NENITA, dehydration and AMS. Still has dysarthria and some confusion. -: Tolerating pureed/nectar thick diet. Nsg reports HR in 30-40's. - Objective Resuscitation Status: Resuscitation Status FULL:Full Resuscitation MAR Reviewed: Yes Vital Signs & Weight: Vital Signs (12 hours) Temp Pulse Resp BP Pulse Ox 05/02/18 12:45 97.8 F 41 L 18 132/60 95 05/02/18 07:35 98.0 F 40 L 20 119/56 L 99 05/02/18 03:27 97.5 F L 42 L 18 116/56 L 95 Weight Admit Weight 126 lb 3.2 oz Weight 136 lb 4.8 oz I&O: 05/01/18 05/02/18 05/03/18 06:59 06:59 06:59 Intake Total 3225 4327 Output Total 1750 2600 Balance 1475 1727 Result Diagrams: 05/02/18 05:16 05/02/18 05:16 Additional Labs: Microbiology 04/28/18 23:06 Urine turk catheter Urine Culture - Final Staphylococcus haemolyticus 04/29/18 13:16 Venous blood - Right Hand Blood Culture - Preliminary NO GROWTH AT 48 HOURS 04/29/18 13:16 Venous blood - Left Hand Blood Culture - Preliminary NO GROWTH AT 48 HOURS Laboratory Tests 04/28/18 04/29/18 04/29/18 20:32 13:16 14:57 WBC 40.5 H* Plt Count 145 Band Neuts % (Manual) 13 H PT INR Sodium Chloride Carbon Dioxide BUN Creatinine Creatine Kinase Troponin I 0.737 H* 1.346 H* 04/29/18 04/30/18 04/30/18 17:05 04:47 04:47 WBC 29.6 H Plt Count 120 L Band Neuts % (Manual) 15 H PT INR Sodium 161 H* Chloride Carbon Dioxide 12 L BUN Creatinine 8.20 H Creatine Kinase Troponin I 1.200 H* 04/30/18 05/01/18 05/01/18 17:14 05:17 05:17 WBC 20.3 H Plt Count Band Neuts % (Manual) 19 H PT INR Sodium 161 H* 156 H Chloride 130 H* Carbon Dioxide 13 L 14 L BUN 131 H Creatinine 7.92 H 7.43 H Creatine Kinase Troponin I 05/02/18 05/02/18 05/02/18 05:16 05:16 05:16 WBC Plt Count Band Neuts % (Manual) 18 H PT 44.9 H INR 4.5 H* Sodium Chloride Carbon Dioxide BUN Creatinine Creatine Kinase 97 Troponin I Radiology Reviewed by me: Yes (ABD x-ray - neg; Abd sono - enlarged GB, no acute process) EKG Reviewed by me: Yes (Tele - Sinus bradycardia in 35-40's) Phys Exam - Physical Examination alert, + dysarthria L eye with conjunctival injection HEENT: PERRLA, sclera anicteric, oral pharynx no lesions Neck: no nodes, no JVD, supple, full ROM Respiratory: no wheezing, no rales, no rhonchi, clear to auscultation bilateral Cardiovascular: RRR, no significant murmur, no rub, gallop TTP in LLQ, bowel sounds + Gastrointestinal: soft, no distention, positive bowel sounds Musculoskeletal: no edema, pulses present Neurological: moves all 4 limbs A x O x 1 Skin: no rash, normal turgor, cap refill <2 seconds Deviation from normal: Turk with clear urine Dx/Plan (1) Encephalopathy acute Code(s): G93.40 - ENCEPHALOPATHY, UNSPECIFIED Status: Acute Comment: Multifactorial including multiple metabolic derangements, slow improvement, supportive mgmt, MRI brain to r/o CVA (2) Severe dehydration Code(s): E86.0 - DEHYDRATION Status: Acute Comment: Improved, continue IVF's , encourage increased free H2O intake when tolerating po (3) NENITA (acute kidney injury) Code(s): N17.9 - ACUTE KIDNEY FAILURE, UNSPECIFIED Status: Acute Comment: Slow improvement, Renal sono negative, avoid nephrotoxic meds and limit contrast exposure, serial monitoring (4) Elevated troponin Code(s): R74.8 - ABNORMAL LEVELS OF OTHER SERUM ENZYMES Status: Acute Comment: Secondary to demand ischemia and NENITA, supportive mgmt, ASA 325mg daily (5) Hypernatremia Code(s): E87.0 - HYPEROSMOLALITY AND HYPERNATREMIA Status: Acute Comment: Improved with IVF's, serial monitoring (6) Rhabdomyolysis Code(s): M62.82 - RHABDOMYOLYSIS Status: Acute Comment: Continue IVF's, resolving (7) A-fib Code(s): I48.91 - UNSPECIFIED ATRIAL FIBRILLATION Status: Resolved Qualifiers: Atrial fibrillation type: paroxysmal Qualified Code(s): I48.0 - Paroxysmal atrial fibrillation Comment: Resolved with supportive mgmt, sinus bradycardia currently (8) UTI (urinary tract infection) Status: Acute Qualifiers: Urinary tract infection type: acute cystitis Comment: Suspected with staphylococcus spp, continue Rocephin 2gm IV daily - Plan continue antibiotics, PT/OT, social work msw, DVT proph w/SCDs Stable currently -: Continue D5W IV and follow serial Na+ -: PT for mobilization and functional assessment -: MRI brain to r/o CVA -: Continue Rocephin 2gm IV daily * Avoid AV rei blocking agents, B-blockers, pt may need PM consideration * Continue Zosyn another 24h and monitor clinical status * AM lab: BMP, CBC
--- NOTE | 2018-05-02 16:53 | PRG ---
DATE OF SERVICE: 05/02/2018 NEPHROLOGY PROGRESS NOTE SUBJECTIVE: Patient was seen and examined at bedside and overnight events noted. Patient denies any shortness of breath or chest pain or palpitation. No history of nausea or vomiting or diarrhea or f ever or chills or cramps. OBJECTIVE: GENERAL: This is an elderly male in no apparent distress. VITAL SIGNS: Temperature 97.8, pulse 41, respiratory rate 18, blood pressure 132/60. HEENT: Atraumatic, normocephalic. Oral mucosa is moist. NECK: Supple. CARDIOVASCULAR: S1, S2 heard. Rate and rhythm regular. RESPIRATORY: Clear to auscultation. GASTROINTESTINAL: Abdomen is soft. MUSCULOSKELETAL: No tenderness. No edema. DERMATOLOGIC: No skin rash. NEUROLOGIC: Alert and awake and oriented x3. No focal neurologic deficits. Moving all the extremiti es. PSYCHIATRIC: Mood and affect normal. DATE OF SERVICE 05/02/2018. LABORATORY DATA: Sodium is 149, potassium is 3.8, BUN is 109, creatinine 6.2. ASSESSMENT AND PLAN: 1. Acute kidney injury on chronic kidney disease. Currently, volume depletion getting slowly better . Continue IV fluids. 2. Hyponatremia with hyperchloremia. 3. Uremia, better. 4. Hypoalbuminemia. 5. Edema, controlled. Labs are getting better. Continue current management. Avoid nephrotoxins. We will follow.
[2018-05-02] MEDS: cefTRIAXone\\ROCEPHIN 2 GM in Sodium Chloride 0.9% 100 ML IVPB SCH (18:27)
[2018-05-02] MEDS ORDERED: Famotidine 20 MG TAB PO SCH (21:00)
[2018-05-03] MEDS: Dextrose 5% in Water 1,000 ML IV SCH ×3 (01:11→11:49)
[2018-05-03] MEDS: Piperacillin/Tazobactam 2.25 GM in Sodium Chloride 0.9% 100 ML IVPB SCH ×3 (05:10→20:55)
[2018-05-03 05:23] LABS: INR-International Normal Ratio 1.5; Prothrombin Time 18.5 SEC (12.0-14.7)
[2018-05-03 05:31] LABS: Band 1 % (5-11); Eosinophils 1 % (0-10); Hemoglobin 12.5 g/dL (14.0-18.0); Lymphocytes 8 % (21-51); MDiff Complete? YES; Mean Corpuscular HGB CONC 33.5 g/dL (32.0-36.0); Mean Corpuscular Hemoglobin 31.9 pg (27.0-31.0); Mean Corpuscular Volume 95.1 fL (78.0-98.0); Mean Platelet Volume 11.1 fL (7.4-10.4); Metamyelocyte 1 % (0-0); Monocytes 16 % (0-10); Neutrophil 73 % (42-75); PLT Morphology Comment Appears Decreased; Platelet Count 108 thou/uL (130-400)
[2018-05-03 05:42] LABS: Anion Gap 12 mmol/L (10-20); BUN (Urea Nitrogen) 85 mg/dL (8.4-25.7); Calc. Creatinine Clearance 10 mL/min (70-130); Carbon Dioxide 17 mmol/L (23-31); Chloride 118 mmol/L (98-107); Estimated GFR-MDRD 12; Glucose 131 mg/dL (83-110); Potassium 3.2 mmol/L (3.5-5.1); Sodium 144 mmol/L (136-145)
[2018-05-03] MEDS: Aspirin 325 mg Enteric Coated Tablet PO SCH (09:10)
[2018-05-03] MEDS: Erythromycin Base 0.5% Oint 1 GM TUBE L EYE SCH ×2 (09:10→20:55)
--- NOTE | 2018-05-03 13:26 | MRI ---
MRI OF THE BRAIN WITHOUT CONTRAST: Date: 05/03/18 COMPARISON: None. HISTORY: Altered mental status with unresponsiveness and dehydration. Dysarthria. TECHNIQUE: Multiplanar, multisequence MR images were obtained of the brain without contrast. FINDINGS: There is scattered foci of high T2/FLAIR signal in the subcortical and periventricular white matter, likely secondary to small vessel ischemic disease. No restricted diffusion is seen to suggest an acut e infarction. There is no evidence of hydrocephalus, intracranial hemorrhage, or extra-axial fluid co llection. The expected flow-voids are present. The corpus callosum, pituitary, and craniocervical junction are unremarkable. The calvarium and overlying soft tissues are unremarkable. A small amount of fluid is seen in the rig ht mastoid air cells. The left mastoid air cells and visualized paranasal sinuses are well aerated. IMPRESSION: Small vessel ischemic disease without acute intracranial abnormality. POS: [facility]
--- NOTE | 2018-05-03 13:56 | PDOC.PN ---
- Subjective Encounter Start Date: 05/03/18 Encounter Start Time: 13:45 Subjective: f/u for encephalopathy, NENITA, severe dehydration and dysphagia. Nsg -: reports persistent confusion and not taking diet well. Sleeping most of -: the day. + BMs today - Objective Resuscitation Status: Resuscitation Status FULL:Full Resuscitation MAR Reviewed: Yes Vital Signs & Weight: Vital Signs (12 hours) Temp Pulse Resp BP Pulse Ox 05/03/18 11:51 97.7 F 45 L 16 132/60 95 05/03/18 07:28 97.6 F 54 L 16 134/63 99 05/03/18 04:00 98.2 F 61 17 140/64 97 Weight Admit Weight 126 lb 3.2 oz Weight 140 lb 9.6 oz I&O: 05/02/18 05/03/18 05/04/18 06:59 06:59 06:59 Intake Total 4327 3131 Output Total 2600 2750 Balance 1727 381 Result Diagrams: 05/03/18 04:31 05/03/18 04:31 Additional Labs: Microbiology 04/28/18 23:06 Urine turk catheter Urine Culture - Final Staphylococcus haemolyticus 04/29/18 13:16 Venous blood - Right Hand Blood Culture - Preliminary NO GROWTH AT 48 HOURS 04/29/18 13:16 Venous blood - Left Hand Blood Culture - Preliminary NO GROWTH AT 48 HOURS Laboratory Tests 04/28/18 04/29/18 04/29/18 20:32 13:16 14:57 WBC 40.5 H* Plt Count 145 Band Neuts % (Manual) 13 H PT INR Sodium Chloride Carbon Dioxide BUN Creatinine Creatine Kinase Troponin I 0.737 H* 1.346 H* 04/29/18 04/30/18 04/30/18 17:05 04:47 04:47 WBC 29.6 H Plt Count 120 L Band Neuts % (Manual) 15 H PT INR Sodium 161 H* Chloride Carbon Dioxide 12 L BUN Creatinine 8.20 H Creatine Kinase Troponin I 1.200 H* 04/30/18 05/01/18 05/01/18 17:14 05:17 05:17 WBC 20.3 H Plt Count Band Neuts % (Manual) 19 H PT INR Sodium 161 H* 156 H Chloride 130 H* Carbon Dioxide 13 L 14 L BUN 131 H Creatinine 7.92 H 7.43 H Creatine Kinase Troponin I 05/02/18 05/02/18 05/02/18 05:16 05:16 05:16 WBC Plt Count Band Neuts % (Manual) 18 H PT 44.9 H INR 4.5 H* Sodium Chloride Carbon Dioxide BUN Creatinine Creatine Kinase 97 Troponin I Radiology Reviewed by me: Yes (MRI brain - no acute process) EKG Reviewed by me: Yes (Tele - Sinus reynaldo in 50's) Phys Exam - Physical Examination opens eyes to name, states a few words, +dysarthria L eye with conjunctival injection HEENT: PERRLA, sclera anicteric, oral pharynx no lesions Neck: no nodes, no JVD, supple, full ROM Respiratory: no wheezing, no rales, no rhonchi, clear to auscultation bilateral S1, S2 Cardiovascular: RRR, no significant murmur, no rub, gallop Mild TTP in LLQ Gastrointestinal: soft, no distention, positive bowel sounds Musculoskeletal: no edema, pulses present + dysarthria, bradykinesia Neurological: moves all 4 limbs A x O x 1 to person Deviation from normal: Ecchymosis of RLQ/flank Skin: no rash, cap refill <2 seconds Dx/Plan (1) Encephalopathy acute Code(s): G93.40 - ENCEPHALOPATHY, UNSPECIFIED Status: Acute Comment: Multifactorial including multiple metabolic derangements, slow improvement, supportive mgmt, MRI brain neg for acute process (2) Severe dehydration Code(s): E86.0 - DEHYDRATION Status: Acute Comment: Improved, continue IVF's , encourage increased free H2O intake when tolerating po (3) NENITA (acute kidney injury) Code(s): N17.9 - ACUTE KIDNEY FAILURE, UNSPECIFIED Status: Acute Comment: Slow improvement, Renal sono negative, avoid nephrotoxic meds and limit contrast exposure, serial monitoring (4) Elevated troponin Code(s): R74.8 - ABNORMAL LEVELS OF OTHER SERUM ENZYMES Status: Acute Comment: Secondary to demand ischemia and NENITA, supportive mgmt, ASA 325mg daily (5) Hypernatremia Code(s): E87.0 - HYPEROSMOLALITY AND HYPERNATREMIA Status: Acute Comment: Improved with IVF's, serial monitoring (6) Rhabdomyolysis Code(s): M62.82 - RHABDOMYOLYSIS Status: Acute Comment: Continue IVF's, resolving (7) UTI (urinary tract infection) Status: Acute Qualifiers: Urinary tract infection type: acute cystitis Comment: + staphylococcus spp, continue Rocephin 2gm IV daily (8) Dysphagia Code(s): R13.10 - DYSPHAGIA, UNSPECIFIED Status: Acute Qualifiers: Dysphagia type: oropharyngeal phase Qualified Code(s): R13.12 - Dysphagia, oropharyngeal phase Comment: Speech therapy monitoring, Pureed/[place] thick liquid diet but small % taken, will monitor another 24h, may have to consider TPN or even possibility of NGT/PEG - Plan continue antibiotics, PT/OT, outreach and education social worker, speech therapy, respiratory therapy, DVT proph w/SCDs Continue D5W @ 75ml/h -: PT for mobilization -: CM for SNF options -: Continue Rocephin and Zosyn, likely de-escalate in next 48h -: Pepcid 20mg IV BID * AM lab: BMP, CBC, PT/INR
[2018-05-03] MEDS: Warfarin Sodium 2.5 MG TAB PO SCH (17:17)
[2018-05-03] MEDS: cefTRIAXone\\ROCEPHIN 2 GM in Sodium Chloride 0.9% 100 ML IVPB SCH (17:17)
--- NOTE | 2018-05-03 19:32 | PRG ---
DATE OF SERVICE: 05/03/2018 SUBJECTIVE: Patient was seen and examined at bedside and overnight events noted. Patient denies any shortness of breath or chest pain or palpitation. No history of nausea or vomiting or diarrhea or f ever or chills or cramps. OBJECTIVE: GENERAL: This is a well-built male in no apparent distress. VITAL SIGNS: Temperature 97.7, pulse 45, respiratory rate 16, blood pressure 132/60. HEENT: Atraumatic, normocephalic. Oral mucosa is moist. NECK: Supple. CARDIOVASCULAR: S1, S2 heard. Rate and rhythm regular. RESPIRATORY: Clear to auscultation. GASTROINTESTINAL: Abdomen is soft. MUSCULOSKELETAL: No tenderness. No edema. DERMATOLOGIC: No skin rash. NEUROLOGIC: Alert and awake and oriented x3. No focal neurologic deficits. Moving all the extremiti es. PSYCHIATRIC: Mood and affect normal. LABORATORY DATA: Potassium is 3.2, BUN is 85, creatinine is 4.5. ASSESSMENT AND PLAN: 1. Hypernatremia. Sodium level is better. We will change D5W to 75. 2. Hyperchloremia. 3. Acute kidney injury on chronic kidney disease. 4. Uremia, better. 5. Edema, controlled. 6. Hypertension, stable. 7. Hypokalemia, replace and monitor. 8. Renal function and electrolytes are getting better. We will reduce IV fluids.
[2018-05-03] MEDS: Famotidine/PF 20 mg/2ml Vial SLOW IVP SCH (20:54)
[2018-05-04 06:22] LABS: INR-International Normal Ratio 1.2; Prothrombin Time 15.6 SEC (12.0-14.7)
[2018-05-04] MEDS: Piperacillin/Tazobactam 2.25 GM in Sodium Chloride 0.9% 100 ML IVPB SCH ×3 (06:22→21:05)
[2018-05-04] MEDS: Dextrose 5% in Water 1,000 ML IV SCH ×3 (06:23→19:30)
[2018-05-04 06:42] LABS: Anion Gap 12 mmol/L (10-20); BUN (Urea Nitrogen) 61 mg/dL (8.4-25.7); Calc. Creatinine Clearance 14 mL/min (70-130); Calcium 8.3 mg/dL (7.8-10.44); Carbon Dioxide 22 mmol/L (23-31); Chloride 115 mmol/L (98-107); Estimated GFR-MDRD 18; Glucose 131 mg/dL (83-110); Potassium 3.1 mmol/L (3.5-5.1); Sodium 146 mmol/L (136-145)
[2018-05-04 06:44] LABS: Band 1 % (5-11); Hemoglobin 13.3 g/dL (14.0-18.0); Lymphocytes 10 % (21-51); MDiff Complete? YES; Mean Corpuscular HGB CONC 32.8 g/dL (32.0-36.0); Mean Corpuscular Hemoglobin 31.4 pg (27.0-31.0); Mean Corpuscular Volume 95.5 fL (78.0-98.0); Monocytes 20 % (0-10); Neutrophil 69 % (42-75); Platelet Count 128 thou/uL (130-400); RBC Distribution Width 12.7 % (11.5-14.5); Red Blood Cell (RBC) Count 4.23 mill/uL (4.70-6.10); White Blood Cell (WBC) Count 10.6 thou/uL (4.8-10.8)
--- NOTE | 2018-05-04 08:47 | PRG ---
Patient Name: HAILE MCKNIGHT Date of service: 05/04/2018 Subjective: Patient was seen and examined at bedside and overnight events noted. Patient denies any shortness of breath or chest pain or palpitation. No history of nausea or vomiting or diarrhea or fever or chills or cramps. Objective: General: This is a well-built elderly male in no apparent distress. Vital signs: Temperature 97.6, pulse 50, respiratory rate 18, blood pressure 147/73. HEENT: Atraumatic, normocephalic. Oral mucosa is moist. Neck: Supple. Cardiovascular: S1 S2 heard. Rate and rhythm regular. Respiratory: Clear to auscultation. Gastrointestinal: Abdomen is soft. Musculoskeletal: No tenderness. No edema. Dermatologic: No skin rash. Neurologic: Alert and awake and oriented X3. No focal neurologic deficits. Moving all the extremit ies. Psychiatric: Mood and affect normal. LABORATORY DATA: Sodium is 146, potassium is 3.1, BUN 61, creatinine is 3.9. ASSESSMENT AND PLAN: 1. Acute kidney injury on chronic kidney disease, slowly getting better. No acute need for dialysis . 2. Hypokalemia, replaced. 3. Hypernatremia with hyperchloremia. Continue on D5W will increase to 100 mL per hour. 4. Edema, better. 5. Hypertension, stable. Monitor magnesium and continue potassium supplements. We will follow.
[2018-05-04] MEDS ORDERED: Potassium Chloride 40 MEQ in Sodium Chloride 0.9% 250 ML 250 ML IVPB SCH ×2 (09:00→09:30)
[2018-05-04] MEDS ORDERED: Aspirin 325 MG TAB PO SCH (09:15)
[2018-05-04] MEDS: Aspirin 325 mg Enteric Coated Tablet PO SCH (09:50)
[2018-05-04] MEDS: Famotidine/PF 20 mg/2ml Vial SLOW IVP SCH (10:07)
[2018-05-04] MEDS: Erythromycin Base 0.5% Oint 1 GM TUBE L EYE SCH ×2 (10:29→21:07)
[2018-05-04] MEDS ORDERED: Warfarin Sodium 5 MG TAB PO SCH (13:15)
[2018-05-04] MEDS ORDERED: Amlodipine 5 MG TAB PO SCH (13:30)
--- NOTE | 2018-05-04 13:45 | PDOC.PN ---
- Subjective Encounter Start Date: 05/04/18 Encounter Start Time: 13:40 Subjective: f/u for encephalopathy, NENITA, severe dehydration and dysphagia. Nsg -: reports pt still weak, sat up for a few seconds and not ambulating yet. -: Still receiving Rocephin/Zosyn and IVF's. - Objective Resuscitation Status: Resuscitation Status FULL:Full Resuscitation MAR Reviewed: Yes Vital Signs & Weight: Vital Signs (12 hours) Temp Pulse Resp BP Pulse Ox 05/04/18 07:39 97.6 F 52 L 13 155/68 H 96 05/04/18 03:57 97.8 F 55 L 17 147/78 H 95 Weight Admit Weight 126 lb 3.2 oz Weight 139 lb 6 oz I&O: 05/03/18 05/04/18 05/05/18 06:59 06:59 06:59 Intake Total 3131 1960 Output Total 4310 3825 Balance 381 -1865 Result Diagrams: 05/04/18 05:25 05/04/18 05:25 Additional Labs: Accuchecks 05/03/18 11:04 POC Glucose 121 H Microbiology 04/28/18 23:06 Urine turk catheter Urine Culture - Final Staphylococcus haemolyticus 04/29/18 13:16 Venous blood - Right Hand Blood Culture - Preliminary NO GROWTH AT 48 HOURS 04/29/18 13:16 Venous blood - Left Hand Blood Culture - Preliminary NO GROWTH AT 48 HOURS Laboratory Tests 04/28/18 04/29/18 04/29/18 20:32 13:16 14:57 WBC 40.5 H* Plt Count 145 Band Neuts % (Manual) 13 H PT INR Sodium Chloride Carbon Dioxide BUN Creatinine Creatine Kinase Troponin I 0.737 H* 1.346 H* 04/29/18 04/30/18 04/30/18 17:05 04:47 04:47 WBC 29.6 H Plt Count 120 L Band Neuts % (Manual) 15 H PT INR Sodium 161 H* Chloride Carbon Dioxide 12 L BUN Creatinine 8.20 H Creatine Kinase Troponin I 1.200 H* 04/30/18 05/01/18 05/01/18 17:14 05:17 05:17 WBC 20.3 H Plt Count Band Neuts % (Manual) 19 H PT INR Sodium 161 H* 156 H Chloride 130 H* Carbon Dioxide 13 L 14 L BUN 131 H Creatinine 7.92 H 7.43 H Creatine Kinase Troponin I 05/02/18 05/02/18 05/02/18 05:16 05:16 05:16 WBC Plt Count Band Neuts % (Manual) 18 H PT 44.9 H INR 4.5 H* Sodium Chloride Carbon Dioxide BUN Creatinine Creatine Kinase 97 Troponin I Laboratory Tests 05/04/18 05:25 PT 15.6 H INR 1.2 Radiology Reviewed by me: Yes (MRI brain - negative for acute process) EKG Reviewed by me: Yes (Tele - Sinus reynaldo in 50's) Phys Exam - Physical Examination Constitutional: NAD L eye with conjunctival injection(chronic) HEENT: PERRLA, sclera anicteric, oral pharynx no lesions Neck: no nodes, no JVD, supple, full ROM Respiratory: no wheezing, no rales, no rhonchi, clear to auscultation bilateral S1, S2 Cardiovascular: RRR, no significant murmur, no rub, gallop mild TTP in LLQ Gastrointestinal: soft, no distention, positive bowel sounds Musculoskeletal: no edema, pulses present Neurological: moves all 4 limbs Oriented to person Skin: no rash, normal turgor, cap refill <2 seconds Dx/Plan (1) Encephalopathy acute Code(s): G93.40 - ENCEPHALOPATHY, UNSPECIFIED Status: Acute Comment: Multifactorial including multiple metabolic derangements, persistent, supportive mgmt, MRI brain neg for acute process (2) Severe dehydration Code(s): E86.0 - DEHYDRATION Status: Acute Comment: Improved, continue IVF's , encourage increased free H2O intake when tolerating po (3) NENITA (acute kidney injury) Code(s): N17.9 - ACUTE KIDNEY FAILURE, UNSPECIFIED Status: Acute Comment: Slow improvement, Renal sono negative, avoid nephrotoxic meds and limit contrast exposure, serial monitoring (4) Elevated troponin Code(s): R74.8 - ABNORMAL LEVELS OF OTHER SERUM ENZYMES Status: Acute Comment: Secondary to demand ischemia and NENITA, supportive mgmt, ASA 325mg daily (5) Hypernatremia Code(s): E87.0 - HYPEROSMOLALITY AND HYPERNATREMIA Status: Acute Comment: Improved with IVF's, continue IVF's until taking consistent po (6) Rhabdomyolysis Code(s): M62.82 - RHABDOMYOLYSIS Status: Acute Comment: Continue IVF's, resolving (7) UTI (urinary tract infection) Status: Acute Qualifiers: Urinary tract infection type: acute cystitis Comment: + staphylococcus spp, continue Rocephin 2gm IV daily (8) Dysphagia Code(s): R13.10 - DYSPHAGIA, UNSPECIFIED Status: Acute Qualifiers: Dysphagia type: oropharyngeal phase Qualified Code(s): R13.12 - Dysphagia, oropharyngeal phase Comment: Speech therapy monitoring, Pureed/[place] thick liquid diet but small % taken, will monitor another 24h, may have to consider TPN or even possibility of NGT/PEG (9) 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
[2018-05-04] MEDS: cefTRIAXone\\ROCEPHIN 2 GM in Sodium Chloride 0.9% 100 ML IVPB SCH (17:20)
[2018-05-04] MEDS: Warfarin Sodium 2.5 MG TAB PO SCH (17:21)
[2018-05-04] MEDS: Enoxaparin Sodium 60 MG/0.6 ML SYRINGE SC SCH (21:06)
[2018-05-05 05:19] LABS: INR-International Normal Ratio 1.6; Prothrombin Time 19.5 SEC (12.0-14.7)
[2018-05-05 05:28] LABS: Anion Gap 12 mmol/L (10-20); BUN (Urea Nitrogen) 39 mg/dL (8.4-25.7); Calc. Creatinine Clearance 22 mL/min (70-130); Calcium 8.1 mg/dL (7.8-10.44); Carbon Dioxide 22 mmol/L (23-31); Chloride 112 mmol/L (98-107); Estimated GFR-MDRD 29; Glucose 131 mg/dL (83-110); Magnesium 1.4 mg/dL (1.6-2.6); Phosphorus 2.2 mg/dL (2.3-4.7); Sodium 143 mmol/L (136-145)
[2018-05-05 05:33] LABS: Potassium 2.9 mmol/L (3.5-5.1)
[2018-05-05] MEDS: Piperacillin/Tazobactam 2.25 GM in Sodium Chloride 0.9% 100 ML IVPB SCH ×2 (05:48→15:21)
[2018-05-05] MEDS: Dextrose 5% in Water 1,000 ML IV SCH ×2 (05:48→15:24)
[2018-05-05] MEDS ORDERED: Potassium Chloride 20 MEQ in Premix Bag 1 BAG IVPB SCH (06:45)
[2018-05-05] MEDS: Aspirin 325 MG TAB PO SCH (09:57)
[2018-05-05] MEDS: Amlodipine 5 MG TAB PO SCH (09:57)
[2018-05-05] MEDS: Famotidine/PF 20 mg/2ml Vial SLOW IVP SCH (09:58)
[2018-05-05] MEDS: Erythromycin Base 0.5% Oint 1 GM TUBE L EYE SCH ×2 (09:58→20:17)
--- NOTE | 2018-05-05 10:53 | PRG ---
DATE OF SERVICE: 05/05/2018 NEPHROLOGY PROGRESS NOTE SUBJECTIVE: Patient was seen and examined at bedside and overnight events noted. Patient denies any shortness of breath or chest pain or palpitation. No history of nausea or vomiting or diarrhea or f ever or chills or cramps. OBJECTIVE: GENERAL: This is an elderly male in no apparent distress. VITAL SIGNS: Temperature 98.7, pulse 50, respiratory rate 18, blood pressure 144/63. HEENT: Atraumatic, normocephalic. Oral mucosa is moist. NECK: Supple. CARDIOVASCULAR: S1, S2 heard. Rate and rhythm regular. RESPIRATORY: Clear to auscultation. GASTROINTESTINAL: Abdomen is soft. MUSCULOSKELETAL: No tenderness. No edema. DERMATOLOGIC: No skin rash. NEUROLOGIC: Alert and awake and oriented x3. No focal neurologic deficits. Moving all the extremiti es. PSYCHIATRIC: Mood and affect normal. LABORATORY DATA: Potassium is 2.9, BUN 39, creatinine is 2.1. ASSESSMENT AND PLAN: 1. Acute kidney injury on chronic kidney disease. Renal function with slight improvement. 2. Hypokalemia with hypomagnesemia, replace magnesium and phosphorus. 3. Hyponatremia, slightly better. 4. Edema, controlled. 5. Hypertension, stable. 6. Replace electrolytes, renal function is getting better. We will follow.
[2018-05-05] MEDS ORDERED: Potassium Phosphate 30 MMOL in Sodium Chloride 0.9% 500 ML IVPB SCH (11:00)
[2018-05-05] MEDS ORDERED: Magnesium Sulfate 2 GM in Sodium Chloride 0.9% 100 ML IVPB SCH (11:00)
--- NOTE | 2018-05-05 15:23 | PDOC.PN ---
- Subjective Encounter Start Date: 05/05/18 Encounter Start Time: 15:15 Subjective: f/u for encephalopathy, severe dehydration, NENITA and UTI. Overall doing -: better but eating small amounts. Not ambulatory but sits up in bed. - Objective Resuscitation Status: Resuscitation Status FULL:Full Resuscitation MAR Reviewed: Yes Vital Signs & Weight: Vital Signs (12 hours) Temp Pulse Resp BP BP Pulse Ox 05/05/18 12:50 97.6 F 58 L 19 124/59 L 96 05/05/18 09:57 58 L 05/05/18 07:45 98.7 F 58 L 20 98 05/05/18 07:22 98.7 F 58 L 17 144/63 H 98 05/05/18 04:00 97.5 F L 60 18 159/71 H 97 Weight Admit Weight 126 lb 3.2 oz Weight 138 lb 9 oz I&O: 05/04/18 05/05/18 05/06/18 06:59 06:59 06:59 Intake Total 1960 1460 Output Total 382 2825 Balance -6945 -6264 Result Diagrams: 05/04/18 05:25 05/05/18 04:28 Additional Labs: Microbiology 04/28/18 23:06 Urine turk catheter Urine Culture - Final Staphylococcus haemolyticus 04/29/18 13:16 Venous blood - Right Hand Blood Culture - Preliminary NO GROWTH AT 48 HOURS 04/29/18 13:16 Venous blood - Left Hand Blood Culture - Preliminary NO GROWTH AT 48 HOURS Laboratory Tests 04/28/18 04/29/18 04/29/18 20:32 13:16 14:57 WBC 40.5 H* Plt Count 145 Band Neuts % (Manual) 13 H PT INR Sodium Potassium Chloride Carbon Dioxide BUN Creatinine Phosphorus Magnesium Creatine Kinase Troponin I 0.737 H* 1.346 H* 04/29/18 04/30/18 04/30/18 17:05 04:47 04:47 WBC 29.6 H Plt Count 120 L Band Neuts % (Manual) 15 H PT INR Sodium 161 H* Potassium Chloride Carbon Dioxide 12 L BUN Creatinine 8.20 H Phosphorus Magnesium Creatine Kinase Troponin I 1.200 H* 04/30/18 05/01/18 05/01/18 17:14 05:17 05:17 WBC 20.3 H Plt Count Band Neuts % (Manual) 19 H PT INR Sodium 161 H* 156 H Potassium Chloride 130 H* Carbon Dioxide 13 L 14 L BUN 131 H Creatinine 7.92 H 7.43 H Phosphorus Magnesium Creatine Kinase Troponin I 05/02/18 05/02/18 05/02/18 05:16 05:16 05:16 WBC Plt Count Band Neuts % (Manual) 18 H PT 44.9 H INR 4.5 H* Sodium Potassium Chloride Carbon Dioxide BUN Creatinine Phosphorus Magnesium Creatine Kinase 97 Troponin I 05/03/18 05/04/18 05/04/18 04:31 05:25 05:25 WBC Plt Count Band Neuts % (Manual) PT 15.6 H INR 1.2 Sodium 146 H Potassium 3.2 L 3.1 L Chloride Carbon Dioxide BUN 61 H Creatinine 3.29 H Phosphorus Magnesium Creatine Kinase Troponin I 05/05/18 05/05/18 04:28 04:28 WBC Plt Count Band Neuts % (Manual) PT 19.5 H INR 1.6 Sodium Potassium Chloride Carbon Dioxide BUN Creatinine Phosphorus 2.2 L Magnesium 1.4 L Creatine Kinase Troponin I EKG Reviewed by me: Yes (Tele - SR in 60's) Phys Exam - Physical Examination Constitutional: NAD L eye conjunctival injection HEENT: PERRLA, sclera anicteric, oral pharynx no lesions Neck: no nodes, no JVD, supple, full ROM Respiratory: no wheezing, no rales, no rhonchi, clear to auscultation bilateral S1, S2 Cardiovascular: RRR, no significant murmur, no rub, gallop Gastrointestinal: soft, non-tender, no distention, positive bowel sounds Musculoskeletal: no edema, pulses present Neurological: normal sensation, moves all 4 limbs A x O x 1 Skin: no rash, normal turgor, cap refill <2 seconds Deviation from normal: [place] with clear urine Dx/Plan (1) Encephalopathy acute Code(s): G93.40 - ENCEPHALOPATHY, UNSPECIFIED Status: Acute Comment: Multifactorial including multiple metabolic derangements, persistent, supportive mgmt, MRI brain neg for acute process (2) Severe dehydration Code(s): E86.0 - DEHYDRATION Status: Acute Comment: Improved, continue IVF's , encourage increased free H2O intake when tolerating po (3) NENITA (acute kidney injury) Code(s): N17.9 - ACUTE KIDNEY FAILURE, UNSPECIFIED Status: Acute Comment: Slow improvement, Renal sono negative, avoid nephrotoxic meds and limit contrast exposure, serial monitoring (4) Elevated troponin Code(s): R74.8 - ABNORMAL LEVELS OF OTHER SERUM ENZYMES Status: Acute Comment: Secondary to demand ischemia and NENITA, supportive mgmt, ASA 325mg daily (5) Hypernatremia Code(s): E87.0 - HYPEROSMOLALITY AND HYPERNATREMIA Status: Acute Comment: Improved with IVF's, continue IVF's until taking consistent po (6) Rhabdomyolysis Code(s): M62.82 - RHABDOMYOLYSIS Status: Acute Comment: Continue IVF's, resolving (7) UTI (urinary tract infection) Status: Acute Qualifiers: Urinary tract infection type: acute cystitis Comment: + staphylococcus spp, continue Rocephin 2gm IV daily (8) Dysphagia Code(s): R13.10 - DYSPHAGIA, UNSPECIFIED Status: Acute Qualifiers: Dysphagia type: oropharyngeal phase Qualified Code(s): R13.12 - Dysphagia, oropharyngeal phase Comment: Speech therapy monitoring, Pureed/[place] thick liquid diet but small % taken, will monitor, increased po intake in last 24h (9) 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
[2018-05-05] MEDS: Warfarin Sodium 2.5 MG TAB PO SCH (16:51)
[2018-05-05] MEDS: cefTRIAXone\\ROCEPHIN 2 GM in Sodium Chloride 0.9% 100 ML IVPB SCH (16:51)
[2018-05-05] MEDS: Enoxaparin Sodium 60 MG/0.6 ML SYRINGE SC SCH (20:13)
[2018-05-06 04:57] LABS: Hemoglobin 13.3 g/dL (14.0-18.0); Platelet Count 214 thou/uL (130-400)
[2018-05-06 05:31] LABS: Anion Gap 14 mmol/L (10-20); BUN (Urea Nitrogen) 28 mg/dL (8.4-25.7); Calc. Creatinine Clearance 28 mL/min (70-130); Calcium 8.2 mg/dL (7.8-10.44); Carbon Dioxide 22 mmol/L (23-31); Chloride 111 mmol/L (98-107); Estimated GFR-MDRD 38; Glucose 115 mg/dL (83-110); Potassium 3.1 mmol/L (3.5-5.1); Sodium 144 mmol/L (136-145)
[2018-05-06 05:34] LABS: INR-International Normal Ratio 2.5; Prothrombin Time 28.4 SEC (12.0-14.7)
[2018-05-06] MEDS ORDERED: Potassium Chloride 40 MEQ in Premix Bag 1 BAG IVPB SCH (08:45)
[2018-05-06] MEDS: Potassium Chloride 20 MEQ in Premix Bag 1 BAG IVPB SCH ×2 (10:13→12:30)
[2018-05-06] MEDS: Dextrose 5% in Water 1,000 ML IV SCH ×2 (10:13→23:59)
--- NOTE | 2018-05-06 10:13 | PRG ---
DATE OF SERVICE: 05/06/2018 SUBJECTIVE: Patient was seen and examined at bedside and overnight events noted. Patient denies any shortness of breath or chest pain or palpitation. No history of nausea or vomiting or diarrhea or f ever or chills or cramps. OBJECTIVE: GENERAL: This is a well-built male in no apparent distress. VITAL SIGNS: Temperature 97.8, pulse 60, respiratory rate 20, blood pressure 133/61. HEENT: Atraumatic, normocephalic. Oral mucosa is moist. NECK: Supple. CARDIOVASCULAR: S1, S2 heard. Rate and rhythm regular. RESPIRATORY: Clear to auscultation. GASTROINTESTINAL: Abdomen is soft. MUSCULOSKELETAL: No tenderness. No edema. DERMATOLOGIC: No skin rash. NEUROLOGIC: Alert and awake and oriented x3. No focal neurologic deficits. Moving all the extremiti es. PSYCHIATRIC: Mood and affect normal. LABORATORY DATA: Potassium is 3.1, bicarbonate 22, BUN 28, creatinine is 1.7. ASSESSMENT AND PLAN: 1. Acute kidney injury on chronic kidney disease. Renal function with good improvement. 2. Hypokalemia and hypomagnesemia, replace. 3. Hyponatremia. 4. Edema, controlled. 5. Hypertension, stable. 6. Replace electrolytes and renal function is getting better. We will follow.
[2018-05-06] MEDS: Amlodipine 5 MG TAB PO SCH (10:15)
[2018-05-06] MEDS: Aspirin 325 MG TAB PO SCH (10:18)
[2018-05-06] MEDS: Erythromycin Base 0.5% Oint 1 GM TUBE L EYE SCH ×2 (10:18→20:11)
[2018-05-06] MEDS: Famotidine/PF 20 mg/2ml Vial SLOW IVP SCH (10:19)
--- NOTE | 2018-05-06 10:29 | PDOC.CTH ---
<Hetal Martin - Last Filed: 05/06/18 10:27> Cardiology Progress Note - Subjective No complaints. No overnight events. - Objective Vital Signs Temp Pulse Resp BP BP Pulse Ox 05/06/18 08:03 97.8 F 61 20 124/58 L 98 05/06/18 04:00 97.5 F L 62 17 133/61 95 Admit Weight 126 lb 3.2 oz Weight 138 lb 1 oz 05/05/18 05/06/18 05/07/18 06:59 06:59 06:59 Intake Total 1460 1640 Output Total 2825 2375 Balance -1363 -379 - Physical Examination General/Neuro: alert & oriented x3 Neck: no JVD present Lungs: CTA Heart: RRR Abdomen: NT/ND Extremities: other: (no edema) - Telemetry Telemetry Rhythm: SR - Labs Result Diagrams: 05/06/18 04:23 05/06/18 04:23 Troponin/CKMB CK-MB (CK-2) 15.3 ng/mL (0-6.6) H* 04/28/18 20:32 Troponin I 1.200 ng/mL (< 0.028) H* 04/29/18 17:05 - Assessment/Plan 1. s/p acute encephalopathy - resolving 2. s/p EDMUNDO 3. Rhabdo 4. s/p mechanical AVR Overall slow improvement. Stop Lovenox now that INR 2.5. Continue hydration per renal. Plan for SNF. <Chandana Berkowitz - Last Filed: 05/06/18 15:29> Cardiology Progress Note - Objective Vital Signs Temp Pulse Resp BP BP Pulse Ox 05/06/18 12:35 97.2 F L 68 20 162/72 H 96 05/06/18 08:03 97.8 F 61 20 124/58 L 98 05/06/18 04:00 97.5 F L 62 17 133/61 95 Admit Weight 126 lb 3.2 oz Weight 138 lb 1 oz 05/05/18 05/06/18 05/07/18 06:59 06:59 06:59 Intake Total 1460 1640 Output Total 2825 2375 Balance -1361 -171 - Labs Result Diagrams: 05/06/18 04:23 05/06/18 04:23 Troponin/CKMB CK-MB (CK-2) 15.3 ng/mL (0-6.6) H* 04/28/18 20:32 Troponin I 1.200 ng/mL (< 0.028) H* 04/29/18 17:05 - Assessment/Plan Pt seen, evaluted and examined. Continue hydration. Creatinine continues to improve. INR therapeutic. D/C lovenox.
--- NOTE | 2018-05-06 13:27 | PDOC.PN ---
- Subjective Encounter Start Date: 05/06/18 Encounter Start Time: 13:05 Subjective: f/u for AMS, dehydration, NENITA. Overall improved. Eating small amounts. -: Not ambulating currently. - Objective Resuscitation Status: Resuscitation Status FULL:Full Resuscitation MAR Reviewed: Yes Vital Signs & Weight: Vital Signs (12 hours) Temp Pulse Resp BP BP Pulse Ox 05/06/18 12:35 97.2 F L 68 20 162/72 H 96 05/06/18 08:03 97.8 F 61 20 124/58 L 98 05/06/18 04:00 97.5 F L 62 17 133/61 95 Weight Admit Weight 126 lb 3.2 oz Weight 138 lb 1 oz I&O: 05/05/18 05/06/18 05/07/18 06:59 06:59 06:59 Intake Total 1460 1640 Output Total 5898 2375 Balance -1792 -128 Result Diagrams: 05/06/18 04:23 05/06/18 04:23 Additional Labs: Microbiology 04/28/18 23:06 Urine turk catheter Urine Culture - Final Staphylococcus haemolyticus 04/29/18 13:16 Venous blood - Right Hand Blood Culture - Preliminary NO GROWTH AT 48 HOURS 04/29/18 13:16 Venous blood - Left Hand Blood Culture - Preliminary NO GROWTH AT 48 HOURS Laboratory Tests 04/28/18 04/29/18 04/29/18 20:32 13:16 14:57 WBC 40.5 H* Plt Count 145 Band Neuts % (Manual) 13 H PT INR Sodium Potassium Chloride Carbon Dioxide BUN Creatinine Phosphorus Magnesium Creatine Kinase Troponin I 0.737 H* 1.346 H* 04/29/18 04/30/18 04/30/18 17:05 04:47 04:47 WBC 29.6 H Plt Count 120 L Band Neuts % (Manual) 15 H PT INR Sodium 161 H* Potassium Chloride Carbon Dioxide 12 L BUN Creatinine 8.20 H Phosphorus Magnesium Creatine Kinase Troponin I 1.200 H* 04/30/18 05/01/18 05/01/18 17:14 05:17 05:17 WBC 20.3 H Plt Count Band Neuts % (Manual) 19 H PT INR Sodium 161 H* 156 H Potassium Chloride 130 H* Carbon Dioxide 13 L 14 L BUN 131 H Creatinine 7.92 H 7.43 H Phosphorus Magnesium Creatine Kinase Troponin I 05/02/18 05/02/18 05/02/18 05:16 05:16 05:16 WBC Plt Count Band Neuts % (Manual) 18 H PT 44.9 H INR 4.5 H* Sodium Potassium Chloride Carbon Dioxide BUN Creatinine Phosphorus Magnesium Creatine Kinase 97 Troponin I 05/03/18 05/04/18 05/04/18 04:31 05:25 05:25 WBC Plt Count Band Neuts % (Manual) PT 15.6 H INR 1.2 Sodium 146 H Potassium 3.2 L 3.1 L Chloride Carbon Dioxide BUN 61 H Creatinine 3.29 H Phosphorus Magnesium Creatine Kinase Troponin I 05/05/18 05/05/18 04:28 04:28 WBC Plt Count Band Neuts % (Manual) PT 19.5 H INR 1.6 Sodium Potassium Chloride Carbon Dioxide BUN Creatinine Phosphorus 2.2 L Magnesium 1.4 L Creatine Kinase Troponin I EKG Reviewed by me: Yes (Tele - SR in 60's) Phys Exam - Physical Examination Constitutional: NAD alert, responsive, mild dysarthria L eye erythema(chronic) HEENT: PERRLA, sclera anicteric, oral pharynx no lesions Neck: no nodes, no JVD, supple, full ROM Respiratory: no wheezing, no rales, no rhonchi, clear to auscultation bilateral S1, S2 Cardiovascular: RRR, no rub, gallop Gastrointestinal: soft, non-tender, no distention, positive bowel sounds Musculoskeletal: no edema, pulses present Neurological: normal sensation, moves all 4 limbs A x O x 2 Skin: no rash, normal turgor, cap refill <2 seconds Dx/Plan (1) Encephalopathy acute Code(s): G93.40 - ENCEPHALOPATHY, UNSPECIFIED Status: Acute Comment: Multifactorial including multiple metabolic derangements, persistent, supportive mgmt, MRI brain neg for acute process, slow improvement (2) Severe dehydration Code(s): E86.0 - DEHYDRATION Status: Acute Comment: Improved, continue IVF's , encourage increased free H2O intake when tolerating po (3) NENITA (acute kidney injury) Code(s): N17.9 - ACUTE KIDNEY FAILURE, UNSPECIFIED Status: Acute Comment: Slow improvement, Renal sono negative, avoid nephrotoxic meds and limit contrast exposure, serial monitoring (4) Elevated troponin Code(s): R74.8 - ABNORMAL LEVELS OF OTHER SERUM ENZYMES Status: Acute Comment: Secondary to demand ischemia and NENITA, supportive mgmt, ASA 325mg daily (5) Hypernatremia Code(s): E87.0 - HYPEROSMOLALITY AND HYPERNATREMIA Status: Acute Comment: Improved with IVF's, continue IVF's until taking consistent po, resolved (6) Rhabdomyolysis Code(s): M62.82 - RHABDOMYOLYSIS Status: Acute Comment: Continue IVF's, resolved (7) UTI (urinary tract infection) Status: Acute Qualifiers: Urinary tract infection type: acute cystitis Comment: + staphylococcus spp, continue Rocephin 2gm IV daily (8) Dysphagia Code(s): R13.10 - DYSPHAGIA, UNSPECIFIED Status: Acute Qualifiers: Dysphagia type: oropharyngeal phase Qualified Code(s): R13.12 - Dysphagia, oropharyngeal phase Comment: Speech therapy monitoring, Pureed/[place] thick liquid diet but small % taken, will monitor, increased po intake in last 24h (9) 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
[2018-05-06] MEDS: cefTRIAXone\\ROCEPHIN 2 GM in Sodium Chloride 0.9% 100 ML IVPB SCH (17:44)
[2018-05-06] MEDS: Warfarin Sodium 2.5 MG TAB PO SCH (17:51)
[2018-05-07 05:42] LABS: INR-International Normal Ratio 3.1; Prothrombin Time 33.5 SEC (12.0-14.7)
[2018-05-07 05:59] LABS: Anion Gap 13 mmol/L (10-20); BUN (Urea Nitrogen) 21 mg/dL (8.4-25.7); Calc. Creatinine Clearance 34 mL/min (70-130); Calcium 8.1 mg/dL (7.8-10.44); Carbon Dioxide 22 mmol/L (23-31); Chloride 107 mmol/L (98-107); Estimated GFR-MDRD 50; Glucose 115 mg/dL (83-110); Magnesium 1.6 mg/dL (1.6-2.6); Phosphorus 2.6 mg/dL (2.3-4.7); Potassium 3.1 mmol/L (3.5-5.1); Sodium 139 mmol/L (136-145)
[2018-05-07] MEDS: Aspirin 325 MG TAB PO SCH (08:40)
[2018-05-07] MEDS: Erythromycin Base 0.5% Oint 1 GM TUBE L EYE SCH ×2 (08:41→20:53)
[2018-05-07] MEDS: Amlodipine 5 MG TAB PO SCH (08:47)
[2018-05-07] MEDS: Famotidine/PF 20 mg/2ml Vial SLOW IVP SCH (09:16)
--- NOTE | 2018-05-07 10:39 | PDOC.CTH ---
Cardiology Progress Note - Subjective No complaints. Resting comfortably. Renal function with slow improvement. - Objective Vital Signs Temp Pulse Resp BP BP Pulse Ox 05/07/18 08:47 60 145/68 H 05/07/18 08:00 98.1 F 60 16 145/68 H 97 05/07/18 04:00 98 F 56 L 17 139/65 93 L Admit Weight 126 lb 3.2 oz Weight 135 lb 05/06/18 05/07/18 05/08/18 06:59 06:59 06:59 Intake Total 1640 2760 Output Total 2375 1800 Balance -735 960 - Physical Examination General/Neuro: alert & oriented x3 Neck: no JVD present Lungs: CTA Heart: RRR Abdomen: NT/ND Extremities: other: (no edema) - Telemetry Telemetry Rhythm: SB-SR 50-60s - Labs Result Diagrams: 05/06/18 04:23 05/07/18 04:57 Troponin/CKMB CK-MB (CK-2) 15.3 ng/mL (0-6.6) H* 04/28/18 20:32 Troponin I 1.200 ng/mL (< 0.028) H* 04/29/18 17:05 - Assessment/Plan 1. s/p acute encephalopathy 2. s/p EDMUNDO 3. Rhabdo 4. s/p mechanical AVR 5. UTI No changes to care. Continues to increase strength. INR therapeutic and coumadin managed by pharmacy. Goal 2.5-3.5.
[2018-05-07] MEDS ORDERED: Potassium Chloride 40 MEQ in Sodium Chloride 0.9% 500 ML IVPB SCH (11:00)
[2018-05-07] MEDS: Dextrose 5% in Water 1,000 ML IV SCH (11:30)
--- NOTE | 2018-05-07 12:46 | PRG ---
DATE OF SERVICE: 05/07/2018 SUBJECTIVE: Patient was seen and examined at bedside and overnight events noted. Patient denies any shortness of breath or chest pain or palpitation. No history of nausea or vomiting or diarrhea or fever or chills or cramps. OBJECTIVE: GENERAL: This is an elderly white male, in no apparent distress. VITAL SIGNS: Temperature 98.1, pulse 60, respiratory rate 16, blood pressure 145/68. HEENT: Atraumatic, normocephalic. Oral mucosa is moist NECK: Supple CARDIOVASCULAR: S1, S2 heard. Rate and rhythm regular. RESPIRATORY: Clear to auscultation. GASTROINTESTINAL: Abdomen is soft. MUSCULOSKELETAL: No tenderness. No edema. DERMATOLOGIC: No skin rash. NEUROLOGIC: Alert and awake and oriented x3. No focal neurologic deficits. Moving all the extremit ies. PSYCHIATRIC: Mood and affect normal. LABORATORY DATA: Potassium is 3.1, BUN 21, and creatinine is 1.3. ASSESSMENT AND PLAN: 1. Acute kidney injury on chronic kidney disease stage 3. Renal function is back to his baseline. Avoid nephrotoxins and we will follow. 2. Hypokalemia with hypomagnesemia. Plan is to give 40 mEq of potassium today with 1 gram of magnes ium. 3. Hypomagnesemia. 4. Hypernatremia, better. We will reduce the D5W to 50 mL per hour and increase p.o. intake. 5. Edema, controlled. 6. Hypertension, stable. Plan is to replace electrolytes. We will monitor renal function closely.
--- NOTE | 2018-05-07 15:28 | PDOC.PN ---
- Subjective Encounter Start Date: 05/07/18 Encounter Start Time: 15:00 Subjective: f/u for AMS, dehydration, weakness, NENITA. Still weak but more alert. -: Nsg reports poor po intake as pt does not like the food. Current diet -: [place] thick liquids/pureed - Objective Resuscitation Status: Resuscitation Status FULL:Full Resuscitation MAR Reviewed: Yes Vital Signs & Weight: Vital Signs (12 hours) Temp Pulse Pulse Resp BP BP BP 05/07/18 12:00 98.3 F 54 L 16 05/07/18 11:18 89 131/65 05/07/18 08:47 60 145/68 H 05/07/18 08:00 98.1 F 60 16 145/68 H 05/07/18 04:00 98 F 56 L 17 139/65 BP Pulse Ox 05/07/18 12:00 147/66 H 94 L 05/07/18 11:18 05/07/18 08:47 05/07/18 08:00 97 05/07/18 04:00 93 L Weight Admit Weight 126 lb 3.2 oz Weight 135 lb I&O: 05/06/18 05/07/18 05/08/18 06:59 06:59 06:59 Intake Total 1640 2760 Output Total 2375 1800 Balance -735 960 Result Diagrams: 05/06/18 04:23 05/07/18 04:57 Additional Labs: Microbiology 04/28/18 23:06 Urine turk catheter Urine Culture - Final Staphylococcus haemolyticus 04/29/18 13:16 Venous blood - Right Hand Blood Culture - Preliminary NO GROWTH AT 48 HOURS 04/29/18 13:16 Venous blood - Left Hand Blood Culture - Preliminary NO GROWTH AT 48 HOURS Laboratory Tests 04/28/18 04/29/18 04/29/18 20:32 13:16 14:57 WBC 40.5 H* Plt Count 145 Band Neuts % (Manual) 13 H PT INR Sodium Potassium Chloride Carbon Dioxide BUN Creatinine Phosphorus Magnesium Creatine Kinase Troponin I 0.737 H* 1.346 H* 04/29/18 04/30/18 04/30/18 17:05 04:47 04:47 WBC 29.6 H Plt Count 120 L Band Neuts % (Manual) 15 H PT INR Sodium 161 H* Potassium Chloride Carbon Dioxide 12 L BUN Creatinine 8.20 H Phosphorus Magnesium Creatine Kinase Troponin I 1.200 H* 04/30/18 05/01/18 05/01/18 17:14 05:17 05:17 WBC 20.3 H Plt Count Band Neuts % (Manual) 19 H PT INR Sodium 161 H* 156 H Potassium Chloride 130 H* Carbon Dioxide 13 L 14 L BUN 131 H Creatinine 7.92 H 7.43 H Phosphorus Magnesium Creatine Kinase Troponin I 05/02/18 05/02/18 05/02/18 05:16 05:16 05:16 WBC Plt Count Band Neuts % (Manual) 18 H PT 44.9 H INR 4.5 H* Sodium Potassium Chloride Carbon Dioxide BUN Creatinine Phosphorus Magnesium Creatine Kinase 97 Troponin I 05/03/18 05/04/18 05/04/18 04:31 05:25 05:25 WBC Plt Count Band Neuts % (Manual) PT 15.6 H INR 1.2 Sodium 146 H Potassium 3.2 L 3.1 L Chloride Carbon Dioxide BUN 61 H Creatinine 3.29 H Phosphorus Magnesium Creatine Kinase Troponin I 05/05/18 05/05/18 04:28 04:28 WBC Plt Count Band Neuts % (Manual) PT 19.5 H INR 1.6 Sodium Potassium Chloride Carbon Dioxide BUN Creatinine Phosphorus 2.2 L Magnesium 1.4 L Creatine Kinase Troponin I EKG Reviewed by me: Yes (Tele - Sinus bradycardia) Phys Exam - Physical Examination Constitutional: NAD L eye with erythema HEENT: PERRLA, sclera anicteric, oral pharynx no lesions Neck: no nodes, no JVD, supple, full ROM Respiratory: no wheezing, no rales, no rhonchi, clear to auscultation bilateral S1, S2 Cardiovascular: RRR, no significant murmur, no rub, gallop Gastrointestinal: soft, non-tender, no distention, positive bowel sounds Musculoskeletal: no edema, pulses present Neurological: normal sensation, moves all 4 limbs A x O X 1 Skin: no rash, normal turgor, cap refill <2 seconds Deviation from normal: Turk with clear, osmel urine Dx/Plan (1) Encephalopathy acute Code(s): G93.40 - ENCEPHALOPATHY, UNSPECIFIED Status: Acute Comment: Multifactorial including multiple metabolic derangements, persistent, supportive mgmt, MRI brain neg for acute process, slow improvement (2) Severe dehydration Code(s): E86.0 - DEHYDRATION Status: Acute Comment: Improved, continue IVF's , encourage increased free H2O intake when tolerating po, resolved (3) NENITA (acute kidney injury) Code(s): N17.9 - ACUTE KIDNEY FAILURE, UNSPECIFIED Status: Acute Comment: Improved and near baseline, avoid nephrotoxins and limit contrast exposure (4) Elevated troponin Code(s): R74.8 - ABNORMAL LEVELS OF OTHER SERUM ENZYMES Status: Acute Comment: Secondary to demand ischemia and NENITA, supportive mgmt, ASA 325mg daily (5) Hypernatremia Code(s): E87.0 - HYPEROSMOLALITY AND HYPERNATREMIA Status: Acute Comment: Resolved (6) Rhabdomyolysis Code(s): M62.82 - RHABDOMYOLYSIS Status: Acute Comment: Continue IVF's, resolved (7) UTI (urinary tract infection) Status: Acute Qualifiers: Urinary tract infection type: acute cystitis Comment: + staphylococcus spp, continue Rocephin 2gm IV daily (8) Dysphagia Code(s): R13.10 - DYSPHAGIA, UNSPECIFIED Status: Acute Qualifiers: Dysphagia type: oropharyngeal phase Qualified Code(s): R13.12 - Dysphagia, oropharyngeal phase Comment: Speech therapy monitoring, Pureed/[place] thick liquid diet but small % taken, will monitor, increased po intake in last 24h (9) 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
[2018-05-07] MEDS: cefTRIAXone\\ROCEPHIN 2 GM in Sodium Chloride 0.9% 100 ML IVPB SCH (16:44)
[2018-05-07] MEDS: Warfarin Sodium 2.5 MG TAB PO SCH (16:46)
[2018-05-08 05:00] LABS: Hemoglobin 12.5 g/dL (14.0-18.0); INR-International Normal Ratio 3.8; Platelet Count 288 thou/uL (130-400); Prothrombin Time 39.6 SEC (12.0-14.7)
[2018-05-08 05:11] LABS: Anion Gap 11 mmol/L (10-20); BUN (Urea Nitrogen) 17 mg/dL (8.4-25.7); Calc. Creatinine Clearance 37 mL/min (70-130); Carbon Dioxide 22 mmol/L (23-31); Chloride 107 mmol/L (98-107); Estimated GFR-MDRD 56; Glucose 101 mg/dL (83-110); Potassium 3.3 mmol/L (3.5-5.1); Sodium 137 mmol/L (136-145)
[2018-05-08] MEDS: Dextrose 5% in Water 1,000 ML IV SCH (05:40)
[2018-05-08] MEDS ORDERED: Potassium Chloride 20 MEQ TAB PO SCH (09:00)
[2018-05-08] MEDS ORDERED: Potassium Chloride 40 MEQ in Sodium Chloride 0.9% 250 ML 250 ML IVPB SCH (09:30)
--- NOTE | 2018-05-08 09:49 | PRG ---
DATE OF SERVICE: 05/08/2018 SUBJECTIVE: Patient was seen and examined at bedside and overnight events noted. Patient denies shortness of breath or cramps or chest pain or palpitation. No Nausea or vomiting or diarrhea or fever or chills. OBJECTIVE: GENERAL: This is a well-built male in no apparent distress. VITAL SIGNS: Temperature 98.2, pulse 57, respirations 16, blood pressure 152/ 65. Musculoskeletal : No tenderness, No edema HEENT: Atraumatic normocephalic Neck: Supple Cardiovascular: S1S2 heard, Rate and rhythm regular Respiratory: Clear to auscultation Gastrointestinal: Abdomen is soft Dermatologic : No skin rash Neurologic: Alert and awake and oriented X3 No focal neurologic deficits. Moving all the extremities. Psychiatric: Mood and affect normal LABORATORY DATA: Potassium is 3.3, BUN 70, creatinine 1.2. ASSESSMENT AND PLAN: 1. Acute kidney injury on chronic kidney disease. Renal function is stable, close to his baseline. 2. Hypokalemia. Will give another dose of potassium. 3. Hypomagnesemia, stable. 4. Hyponatremia, better. Reduce IV fluids. 5. Edema, controlled. 6. Hypertension, stable. 7. Encourage p.o. intake and monitor potassium. MTDD
[2018-05-08 09:54] VITALS: BP 136/63
[2018-05-08] MEDS: Famotidine/PF 20 mg/2ml Vial SLOW IVP SCH (09:58)
[2018-05-08] MEDS: Amlodipine 5 MG TAB PO SCH (10:17)
[2018-05-08] MEDS: Aspirin 325 MG TAB PO SCH (10:17)
--- NOTE | 2018-05-08 13:07 | DIS ---
DATE OF ADMISSION: 04/28/2018 DATE OF DISCHARGE: 05/08/2018 DISCHARGE DIAGNOSES: 1. Acute encephalopathy secondary to metabolic component, improved. 2. Severe dehydration, resolved. 3. Acute kidney injury on chronic kidney disease stage 3, improved. 4. Hypokalemia, persistent. 5. Elevated troponin I secondary to demand ischemia. 6. Hypernatremia, resolved. 7. Acute rhabdomyolysis, resolved. 8. Urinary tract infection with Staphylococcus species, resolved. 9. Dysphagia, persistent. 10. Status post aortic valve replacement with prosthetic valve on chronic anticoagulation with Couma din. 11. Deconditioning. CONSULTATIONS: Dr. Chopra with Nephrology Service. Dr. Zambrano with Cardiology Service. PERTINENT LABORATORY AND X-RAY FINDINGS: Sodium ranged between 137-165. Potassium ranged between 2. 9-5.0. Creatinine ranged between 1.22-8.45. Estimated GFR ranging between 6-56. Lactic acid level ranged between 2.4-9.0. Troponin I ranged between 0.74-1.35. TSH 0.52. CBC showed a white blood ce ll count ranging between 10.0-40.5. Hemoglobin ranged between 11.7-15.5. Platelet count ranged betw een 95-288. PT 39.6, INR 3.8 on 05/08/2018. Urine drug screen dated 04/28/2018 negative. Plasma al cohol level less than 10. Urine culture dated 04/28/2018 showed 75-100,000 colonies of Staphylococcu s haemolyticus. Blood cultures x2 from 04/29/2018 showed no growth at 5 days. Portable chest x-ray dated 04/28/2018 showed no acute cardiopulmonary process. CT of the brain without contrast dated showed generalized cerebral volume loss without acute intracranial process. CT of the cervic al spine dated 04/28/2018 showed degenerative changes without acute process. CT of the abdomen and p trang dated 04/28/2018 showed wall prominence of multiple distal small bowel loops unclear etiology. No acute punctate focus of gas in the urinary bladder. Two views of the left hip dated 04/29/2018 s howed no evidence of fracture or dislocation. A 2D transthoracic echocardiogram dated 04/30/2018, owed a technically limited exam. Ejection fraction of 50%-55%. Normal functioning bileaflet mechani andrez prosthetic aortic valve. Bilateral renal ultrasound dated 04/30/2018, showed no evidence for hyd ronephrosis. Abdominal ultrasound dated 05/01/2018, showed a question of acalculous cholecystitis. Questionable diffuse dilation of the intrahepatic biliary tree. Probable small bilateral pleural eff usions. Abdominal radiographs dated 05/01/2018, showed no evidence for pneumoperitoneum. Nonspecifi c bowel gas pattern. MRI of the brain dated 05/03/2018 showed small vessel ischemic changes without an acute process. HOSPITAL COURSE: The patient was initially admitted after presenting unresponsive after being found down. The patient was noted with severe dehydration and acute kidney injury after being found down i n his home. The patient with encephalopathic changes likely metabolic and toxic in nature. The sejal ent received aggressive IV fluid hydration as well as general supportive measures including broad-spe ctrum IV antibiotic therapy. The patient was slow to clinically improve with aggressive hydration th erapy and undergoing multiple imaging modalities as stated previously. CT imaging of the brain was u nrevealing as to an acute intracranial process. The patient with multiple metabolic derangements imp roving with hydration. The patient with severe hypernatremia with slow correction. The patient was evaluated by the Nephrology Service and monitored for improvement in overall sodium values as well as creatinine. Exact etiology of patient's presentation unclear; however, the patient was clinically d ehydrated with associated acute kidney injury. The patient slowly clinically improved and was more a lert and responsive to the medical staff. The patient did have residual difficulty with short term a nd long-term memory as well as mild dysarthria. The patient was evaluated by Speech Therapy, who rec ommended for modified diet to include pureed texture and nectar thick liquids. The patient was also evaluated by the cardiology service with history of prosthetic aortic valve, on chronic Coumadin ther apy. The patient was continued on anticoagulation after stabilization with the current therapeutic I NR. The patient was also evaluated by the physical therapy service and deemed an appropriate liliam te for ongoing skilled care and supervised physical therapy in an inpatient rehabilitation setting. I have examined the patient at the time of discharge and discuss pertinent followup instruction as we ll as review of hospital course and lab findings. The patient verbalizes understanding and agreement and ready for discharge to [facility] on 05/08/2018. DISCHARGE MEDICATIONS: 1. Amlodipine 2.5 mg p.o. daily. 2. Aspirin 325 mg p.o. daily. 3. Erythromycin base 0.5% ophthalmic ointment one application left eye b.i.d. 4. Klor-Con 20 mEq p.o. b.i.d. 5. Flomax 0.4 mg p.o. daily. 6. Coumadin 2.5 mg p.o. daily, may resume in 24-48 hours. Goal INR 2.5-3.5 due to a mechanical aort ic valve. FOLLOWUP: The patient will follow up with Dr. Sreekanth Bailey after discharge from inpatient rehabilita tion. CONDITION ON DISCHARGE: Fair. ACTIVITY: ad kia. Rolling walker with contact guard assistance and high fall risk precautions. DIET: Regular with pureed texture and nectar thick liquids. CODE STATUS: FULL. DISPOSITION: Discharged to [facility] on 05/08/2018. Total time preparing and coordinating discharge is 38 minutes.
[2018-05-08 13:47] VITALS: TEMP 98.1
[2018-05-08 13:59] VITALS: BMI 19.1
[2018-05-08] MEDS: Erythromycin Base 0.5% Oint 1 GM TUBE L EYE SCH (15:34)
--- NOTE | 2018-05-11 12:09 | PQF ---
[facility] Physician Query Form HAILE MCKNIGHT DENA [id number] CLINICAL DOCUMENTATION CLARIFICATION FORM: POST DISCHARGE Addendum to original discharge summary date: 14 May 2018 Late entry note date: 14 May 2018 DATE: 05/11/18 ATTN: DR. LORRIE MEDINA Please exercise your independent, professional judgment in responding to the clarification form. Clinical indicators are provided on the bottom of this form for your review Please check appropriate box(es): [ ] Sepsis due to: (Pna, UTI, gangrenous gall bladder, etc.) Due to: [ ] Device (please specify) [ ] Implant [ ] Graft [ ] Infusion [ X ] SIRS due to non-infectious process (please specify etiology) ____At time of admission and hospital day 1 - meets SIRS criteria but no source of infection [ X ] with organ dysfunction [ ] without organ dysfunction [ ] Severe sepsis with acute organ dysfunction of: (Examples: respiratory failure, encephalopathy, acute kidney failure, other) [ ] Septic Shock [ ] Localized infection without sepsis [ ] Other diagnosis [ ] Unable to determine In addition, please specify: Present on Admission (POA): [ X ] Yes [ ] No [ ] Unable to determine For continuity of documentation, please document condition throughout progress notes and discharge summary. Thank You. CLINICAL INDICATORS - SIGNS / SYMPTOMS / LABS BP 108/54, pulse rate of 43 Metabolic acidosis Lactic Acid >2mm WBC count (>12,000/mm^4 or <4000/mm^3 or 10% neuts, 10% bands) RISK FACTORS UTI TREATMENTS: [place]osta Page 1 of 2 Note to Provider: In responding to this query, you must exercise independent clinical judgment. The fact that a query is placed does not imply that any particular answer is desired or expected. Please document your response/ clarification to this query in the patients medical record. Your response should clarify and resolve conflicting, ambiguous, or incomplete information in the health record regarding any significant reportable condition or procedure. ( 2008 [facility] Practice Brief, pg. 5) [employer] does not endorse or approve queries developed by the hospital or its agents and issued through the [employer] software that are not in accordance with the rules or regulations promulgated by the Centers for Medicare and Medicaid (CMS), Office of Data [employer] (OIG), or US Department of Health and Human Services and [facility] 2008 Practice Brief Managing an Effective Query Process or its updates (Practice Brief). JR
== END 2018-05-08 15:49 | DRG 682 ==
LOC: ERS 19:50 → 2NO 23:00
PROVIDERS: ADMIT Internal Medicine Infectious Disease; ATTEND Internal Medicine Infectious Disease
DX: N17.9 Acute kidney failure, unspecified (principal); G92 Toxic encephalopathy; R65.11 Systemic inflammatory response syndrome (SIRS) of non-infectious origin with acute organ dysfunction; I24.8 Other forms of acute ischemic heart disease; E87.0 Hyperosmolality and hypernatremia; M62.82 Rhabdomyolysis; J90 Pleural effusion, not elsewhere classified; E87.1 Hypo-osmolality and hyponatremia; N30.00 Acute cystitis without hematuria; E87.2 Acidosis; E86.0 Dehydration; N18.3 Chronic kidney disease, stage 3 (moderate); E87.6 Hypokalemia; R13.10 Dysphagia, unspecified; Z79.01 Long term (current) use of anticoagulants; Z95.2 Presence of prosthetic heart valve; R47.1 Dysarthria and anarthria; R60.9 Edema, unspecified; I12.9 Hypertensive chronic kidney disease with stage 1 through stage 4 chronic kidney disease, or unspecified chronic kidney disease; E83.42 Hypomagnesemia; B95.8 Unspecified staphylococcus as the cause of diseases classified elsewhere; E87.8 Other disorders of electrolyte and fluid balance, not elsewhere classified; I48.91 Unspecified atrial fibrillation
CPT/HCPCS: 36415; 36416; 51702; 70450; 70551; 71045; 72125; 74019; 74176; 76700; 76770; 80048; 80053; 80076; 80306; 80307; 81003; 81015; 82140; 82550; 82553; 83605; 83735; 84100; 84443; 84484; 85007; 85014; 85018; 85025; 85027; 85049; 85610; 87040; 87086; 87186; 93005; 93010; 93306; 96360; 96361; 96365; 96372; 99292; A4216; C9113; G8978-GP-CM; G8979-GP-CJ; G8996-GN-CK; G8996-GN-CL; G8997-GN-CI; G8997-GN-CJ; J0282; J0696; J1644; J1650; J2543; J3010; J3370; J3430; J3475; J3480; J7050; J7070; S0028

== ENCOUNTER 2018-07-03 18:20 | Inpatient (IN) | payer MEDICARE, MEDICAID ==
[2018-07-03 19:32] LABS: Troponin I 0.021 ng/mL (< 0.028)
[2018-07-03] MEDS ORDERED: Ondansetron HCl/PF 4 MG/2 ML Vial IVP PRN (22:40)
[2018-07-03 23:56] LABS: Lactic Acid 0.7 mmol/L (0.5-2.2)
[2018-07-04 00:03] LABS: Troponin I 0.035 ng/mL (< 0.028)
[2018-07-04] MEDS: cefTRIAXone\\ROCEPHIN 1 GM in Sodium Chloride 0.9% 100 ML IVPB SCH ×2 (00:09→23:16)
--- NOTE | 2018-07-04 03:49 | PDOC.EVN ---
Event Note - Event Note Event Note: add to H&P : as per previous records pt was on Coumadin for metallic aortic valve replacement, pt is poor historian, inr is sub-therapeutic, we will need bridge with heparin given high risk for thrombosis, we have requested pharmacy to help us dose the Coumadin as per pharmacy protocol
[2018-07-04] MEDS ORDERED: Heparin 10,000 UNITS/ 10 ML VIAL SLOW IVP SCH (04:00)
[2018-07-04] MEDS ORDERED: Heparin 25,000 units/D5W 500 ML IVPB SCH (04:00)
--- NOTE | 2018-07-04 06:22 | HP ---
PRIMARY CARE PHYSICIAN: Sreekanth Bailey M.D. CODE STATUS: FULL CODE. TIME OF EVALUATION: 08:25 p.m. CHIEF COMPLAINT: Change in mental status. HISTORY OF PRESENT ILLNESS: This is an 88-year-old male patient with past medical history of coronar y artery disease, BPH, hyperlipidemia, atrial fibrillation, poor historian, who was brought to the [facility] after having a change in mental status as per [facility] report in [place]. The patient al so had some episodes of hypertension, no clear triggers, no alleviating factors. The patient has a h istory of being recently in the hospital for dehydration and for UTI. The symptoms were reported as moderate, and likely triggered by underlying infection, no alleviating factors. REVIEW OF SYSTEMS: Unable to obtain. The patient is confused. PAST SURGICAL HISTORY: Heart valve replacement, prostate surgery x5, skin cancer on the left eye and left arm. Poor historian. PSYCHIATRIC HISTORY: No previous psychiatric history. SOCIAL HISTORY: The patient lives in [facility]. No alcohol, no drug use. FAMILY HISTORY: Unable to obtain. The patient is confused. ALLERGIES: No known drug allergies. REPORTED MEDICATIONS: Flomax. PHYSICAL EXAMINATION: VITAL SIGNS: On presentation, blood pressure 161/73 with heart rate 61, respiratory rate was 20, tem perature 97.9, oxygen saturation was 100% on room air. GENERAL APPEARANCE: The patient is alert, oriented to person, in good mood. HEENT: Eyes, normal conjunctivae. Moist oral mucosa. Anicteric. NECK: No JVD. RESPIRATORY: Bilateral air entry. No rales, no wheezing. Symmetric expansion. CARDIOVASCULAR: Normal rate. Regular rhythm. No murmurs, no gallop. No edema. ABDOMEN: Soft, normal bowel sounds. MUSCULOSKELETAL: Baseline range of motion and strength. No tenderness. SKIN: Warm and intact. No pallor, no rash, no redness. Peripheral pulses are present. Capillary r efill seems to be intact. NEUROLOGIC: Baseline sensory. No evidence of any focal weakness. Baseline speech. Cranial nerves seem to be intact. PSYCHIATRIC: The patient is in good mood. Oriented x2. No anxiety. GENITOURINARY: The patient has Traore in place with dark urine. EKG: EKG was reviewed, which has junctional rhythm at a rate of 78 with QRS 100 and QT corrected 485 . LABORATORY DATA: Labs were reviewed. The patient has white count 10.9, hemoglobin 12.5, MCV 83, fidel telet count 266. Coagulation was normal. Chemistry: Sodium 139, potassium 4.3, chloride 110, carbo n dioxide 19, anion gap 14, BUN 20, creatinine 1.4, previous creatinine was 1.2. GFR 45, glucose 89. Lactic acid 0.7, calcium 8.8. Troponins were done, the first one was 0.021, the second one was 0.0 35. Urine was done and was markedly positive for white 50 to too numerous to count and toxicology wa s negative. Chest x-ray was reviewed. The patient had no acute thoracic findings and the brain CT w as done. 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 ASSESSMENT AND PLAN: The patient will be placed in the hospital with following medical problems: 1. Acute encephalopathy, likely secondary to underlying infection versus some component of dehydrati on, we will hydrate, the patient will be placed on antibiotics, I will continue for now. 2. Urinary tract infection, we will place the patient on antibiotics, will adjust as per culture and sensitivity. 3. Mildly elevated creatinine, when compared to previous studies, we will hydrate, we will monitor. 4. Mildly elevated troponins, we will trend it, which is minimal, acute coronary syndrome at t his point. 5. Deep venous thrombosis prophylaxis.
[2018-07-04 08:57] LABS: INR-International Normal Ratio 1.2; Prothrombin Time 15.2 SEC (12.0-14.7)
[2018-07-04] MEDS ORDERED: Prevnar 13-Val Conj/PF 0.5 ML SYRINGE IM ONE (09:00)
[2018-07-04] MEDS ORDERED: Enoxaparin Sodium 40 MG/0.4 ML SYRINGE SC SCH (09:00)
[2018-07-04 09:08] LABS: Anion Gap 11 mmol/L (10-20); BUN (Urea Nitrogen) 16 mg/dL (8.4-25.7); Calc. Creatinine Clearance 32 mL/min (70-130); Calcium 8.3 mg/dL (7.8-10.44); Carbon Dioxide 19 mmol/L (23-31); Chloride 114 mmol/L (98-107); Estimated GFR-MDRD 51; Glucose 89 mg/dL (83-110); Potassium 3.9 mmol/L (3.5-5.1); Sodium 140 mmol/L (136-145)
[2018-07-04 10:31] LABS: Band 1 % (5-11); Burr Cells SLIGHT = 2-5 cells (100X) (0-1/hpf); Eosinophils 2 % (0-10); Hemoglobin 10.7 g/dL (14.0-18.0); Lymphocytes 37 % (21-51); MDiff Complete? YES; Mean Corpuscular HGB CONC 32.8 g/dL (32.0-36.0); Mean Corpuscular Hemoglobin 32.7 pg (27.0-31.0); Mean Corpuscular Volume 99.7 fL (78.0-98.0); Mean Platelet Volume 8.1 fL (7.4-10.4); Monocytes 18 % (0-10); Neutrophil 42 % (42-75); PLT Morphology Comment Appears Adequate; Platelet Count 242 thou/uL (130-400); Polychromasia SLIGHT = 2-3 cells (100X) (0-2/hpf); RBC Distribution Width 13.1 % (11.5-14.5); Red Blood Cell (RBC) Count 3.27 mill/uL (4.70-6.10)
[2018-07-04] MEDS: Tamsulosin HCl 0.4 MG CAP PO SCH (11:25)
[2018-07-04] MEDS: Aspirin 325 MG TAB PO SCH (12:13)
[2018-07-04] MEDS: Amlodipine 5 MG TAB PO SCH (12:13)
[2018-07-04] MEDS: Erythromycin Base 0.5% Oint 1 GM TUBE L EYE SCH ×2 (12:14→21:39)
[2018-07-04] MEDS: Lorazepam 2 MG/ML VIAL SLOW IVP PRN ×2 (13:02→21:39)
--- NOTE | 2018-07-04 13:04 | PDOC.EVN ---
Event Note - Event Note Event Note: Patient was seen and examined by me this morning. Was somewhat agitated. ordered Ativan prn. Examined patient and made nurse aware. Addressed patient anticoagulation. Patient is on eliquis 2.5 BID. communicated with pharmacy regarding anticoagulation. Will start eliquis and discontinue heparin and coumadin.
[2018-07-04] MEDS ORDERED: Warfarin Sodium 2.5 MG TAB PO SCH (17:00)
[2018-07-04] MEDS: Apixaban 2.5 MG TAB PO SCH (21:38)
[2018-07-05] MEDS: Tamsulosin HCl 0.4 MG CAP PO SCH (09:38)
[2018-07-05] MEDS: Amlodipine 5 MG TAB PO SCH (09:38)
[2018-07-05] MEDS: Aspirin 325 MG TAB PO SCH (09:38)
[2018-07-05] MEDS: Apixaban 2.5 MG TAB PO SCH ×2 (09:39→21:31)
[2018-07-05] MEDS: Erythromycin Base 0.5% Oint 1 GM TUBE L EYE SCH ×2 (09:39→21:31)
--- NOTE | 2018-07-05 15:11 | PDOC.PN ---
- Subjective Encounter Start Date: 07/05/18 Encounter Start Time: 15:09 CC: Altered Mental Service Patient seen and examined. Patient is confused. Doesn't know where he is, doesn' t know what year we are in. Patient is however able to state his name. Will transfer the patient to medical floor. Get neurology consult on the patient. - Objective Resuscitation Status: Resuscitation Status FULL:Full Resuscitation MAR Reviewed: Yes Vital Signs & Weight: Vital Signs (12 hours) Temp Pulse Resp BP BP Pulse Ox 07/05/18 12:01 97.9 F 64 18 108/54 L 97 07/05/18 09:42 98.0 F 64 18 98 07/05/18 09:38 64 124/60 07/05/18 09:35 98.4 F 64 18 124/60 98 07/05/18 04:00 97.5 F L 47 L 16 118/56 L 96 Weight Weight 124 lb I&O: 07/04/18 07/05/18 07/06/18 06:59 06:59 06:59 Intake Total 150 50 Output Total 550 500 Balance -400 -450 Result Diagrams: 07/13/18 08:11 07/13/18 08:11 Phys Exam - Physical Examination Constitutional: NAD HEENT: PERRLA, moist MMs Neck: no JVD, supple, full ROM Respiratory: no wheezing, no rales, no rhonchi, clear to auscultation bilateral Cardiovascular: RRR, no significant murmur Gastrointestinal: soft, non-tender, no distention, positive bowel sounds Musculoskeletal: no edema, pulses present Deviation from normal: confused Dx/Plan (1) NENITA (acute kidney injury) Code(s): N17.9 - ACUTE KIDNEY FAILURE, UNSPECIFIED Status: Resolved Comment : (2) Encephalopathy acute Code(s): G93.40 - ENCEPHALOPATHY, UNSPECIFIED Status: Acute Comment: demented. Patient needs placement. Patient refused MOCA test. 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 continue (4) A-fib Code(s): I48.91 - UNSPECIFIED ATRIAL FIBRILLATION Status: Resolved Qualifiers: Atrial fibrillation type: paroxysmal Qualified Code(s): I48.0 - Paroxysmal atrial fibrillation Comment: continue eliquis - Plan * . Review of Systems - Review of Systems Constitutional: negative: fever, chills, sweats, weakness, malaise, other Eyes: negative: Pain, Vision Change, Conjunctivae Inflammation, Eyelid Inflammation, Redness, Other ENT: negative: Ear Pain, Ear Discharge, Nose Pain, Nose Discharge, Nose Congestion, Mouth Pain, Mouth Swelling, Throat Pain, Throat Swelling, Other Respiratory: negative: Cough, Dry, Shortness of Breath, Hemoptysis, SOB with Excertion, Pleuritic Pain, Sputum, Wheezing Cardiovascular: negative: chest pain, palpitations, orthopnea, paroxysmal nocturnal dyspnea, edema, light headedness, other Gastrointestinal: negative: Nausea, Vomiting, Abdominal Pain, Diarrhea, Constipation, Melena, Hematochezia, Other Genitourinary: negative: Dysuria, Frequency, Incontinence, Hematuria, Retention , Other Musculoskeletal: negative: Neck Pain, Shoulder Pain, Arm Pain, Back Pain, Hand Pain, Leg Pain, Foot Pain, Other Skin: negative: Rash, Lesions, Akshat, Bruising, Other Neurological: negative: Weakness, Numbness, Incoordination, Change in Speech, Confusion, Seizures, Other - Medications/Allergies Allergies/Adverse Reactions: Allergies Allergy/AdvReac Type Severity Reaction Status Date / Time No Known Allergies Allergy Verified 07/03/18 23:51 Medications: Current Medications Amlodipine Besylate (Norvasc) 2.5 mg PO DAILY [facility] Last Admin: 07/05/18 09:38 Dose: 2.5 mg Apixaban (Eliquis) 2.5 mg PO BID [facility] Last Admin: 07/05/18 09:39 Dose: 2.5 mg Aspirin (Aspirin) 325 mg PO QA-[facility] Last Admin: 07/05/18 09:38 Dose: 325 mg Erythromycin (Erythromycin Base 0.5% Oint) 1 gm L EYE BID [facility] Last Admin: 07/05/18 09:39 Dose: 1 gm Ceftriaxone Sodium 1 gm/ (Sodium Chloride) 100 mls @ 200 mls/hr IVPB Q24HR [facility] Last Admin: 07/04/18 23:16 Dose: 100 mls Lorazepam (Ativan) 1 mg SLOW IVP Q6H PRN PRN Reason: Anxiety/Agitation Last Admin: 07/04/18 21:39 Dose: 1 mg Ondansetron HCl (Zofran) 4 mg IVP Q6H PRN PRN Reason: Nausea/Vomiting Potassium Chloride (Klor-Con) 20 meq PO BID-[facility] Last Admin: 07/05/18 09:57 Dose: Not Given Sodium Chloride (Flush - Normal Saline) 10 ml IVF PRN PRN PRN Reason: Saline Flush Tamsulosin HCl (Flomax) 0.4 mg PO DAILY [facility] Last Admin: 07/05/18 09:38 Dose: 0.4 mg
[2018-07-05] MEDS: Sodium Chloride 0.9% 1,000 ML IV SCH (15:58)
[2018-07-05 16:34] LABS: Albumin 2.9 g/dL (3.4-4.8)
[2018-07-05 16:35] LABS: Chloride 111 mmol/L (98-107); Potassium 4.1 mmol/L (3.5-5.1); Sodium 139 mmol/L (136-145)
[2018-07-05 16:36] LABS: Calcium 8.2 mg/dL (7.8-10.44); Globulin 2.9 g/dL (2.4-3.5); Glucose 101 mg/dL (83-110); Protein, Total 5.8 g/dL (5.8-8.1)
[2018-07-05 16:38] LABS: Anion Gap 12 mmol/L (10-20); Bilirubin, Total 0.3 mg/dL (0.2-1.2); Carbon Dioxide 20 mmol/L (23-31)
[2018-07-05 16:39] LABS: Alkaline Phosphatase 51 U/L (40-150); Calc. Creatinine Clearance 37 mL/min (70-130); Estimated GFR-MDRD 61
[2018-07-05 16:40] LABS: BUN (Urea Nitrogen) 12 mg/dL (8.4-25.7)
[2018-07-05 16:41] LABS: AST (SGOT) 12 U/L (5-34)
[2018-07-05 16:42] LABS: ALT (SGPT) Less than 7 U/L (8-55)
[2018-07-05] MEDS: cefTRIAXone\\ROCEPHIN 1 GM in Sodium Chloride 0.9% 100 ML IVPB SCH (23:34)
--- NOTE | 2018-07-06 02:28 | CON ---
DATE OF CONSULTATION: 07/05/2018 REASON FOR CONSULTATION: Altered mental status. HISTORY OF PRESENT ILLNESS: Mr. Self is a pleasant 88-year-old male who is being consulted for evaluation of altered mental status. History is very limited as the patient is a very poor historian and there are no family member present at bedside. Thus, most of the history is obtained from the patient's dictated H&P note. Apparently, the patient was brought in from care home with changes in mental status. It is unknown what is the patient' s baseline is and it is also unknown why the patient is in the care home at this time. I am being asked to further evaluate for altered mental status. PAST MEDICAL HISTORY: Could not be obtained. PAST SURGICAL HISTORY: Could not be obtained. SOCIAL HISTORY: Could not be obtained. FAMILY HISTORY: Could not be obtained. CURRENT MEDICATIONS: Could not be obtained. ALLERGIES: Could not be obtained. REVIEW OF SYSTEMS: Unable to perform. PHYSICAL EXAMINATION: VITAL SIGNS: Blood pressure of 130/54, pulse of 56, temperature of 98, respirations of 18, O2 sats of 94% on room air. GENERAL: Well-developed, well-nourished male in no apparent distress. RESPIRATORY: Clear to auscultation bilaterally. CARDIOVASCULAR: Regular rate and rhythm. NEUROLOGIC: Mental Status: The patient is awake, alert, oriented to person. He is able to state his first and last name, his age, but not able to tell his date of . He is able to follow some simple commands. He has a very tangential thought process and tends to repeat same conversations at least 2-3 times. Speech and language: Appears fluent and normal. Cranial nerves: Pupils are 3 mm and reactive. Visual lindsay are full to threat. Extraocular muscles are intact. No nystagmus noted. Face is symmetric. Motor exam showed normal tone and bulk with 5/5 strength in both upper and lower extremities. Sensory: Sensation is intact and symmetric. LABORATORY DATA: Reviewed, which included CBC, coag panel, CMP, and urinalysis , which is significant for hemoglobin 10.7, hematocrit of 32.6. Urinalysis showed moderate leukocyte esterase, greater than 50 to too numerous to count wbc 's, negative nitrite, and 4+ bacteria, otherwise negative. IMAGING STUDIES: CT head without contrast was reviewed, which showed no acute intracranial abnormality. IMPRESSION: 1. Altered mental status, likely toxic-metabolic encephalopathy. 2. Urinary tract infection. ASSESSMENT AND PLAN: Mr. Self is a pleasant 88-year-old man, who is a care home resident, presented with changes in mentation. He does have urinary tract infection based on urinalysis. This may be the likely cause for his changes in mentation. This would indicate toxic-metabolic encephalopathy. At this time, I would recommend to continue current medical management. Thank you for consultation. JR
[2018-07-06 04:19] LABS: Hemoglobin 10.1 g/dL (14.0-18.0); Platelet Count 200 thou/uL (130-400)
[2018-07-06 04:43] LABS: ALT (SGPT) Less than 7 U/L (8-55); AST (SGOT) 10 U/L (5-34); Albumin 2.7 g/dL (3.4-4.8); Alkaline Phosphatase 45 U/L (40-150); Anion Gap 12 mmol/L (10-20); BUN (Urea Nitrogen) 12 mg/dL (8.4-25.7); Bilirubin, Total 0.2 mg/dL (0.2-1.2); Calc. Creatinine Clearance 39 mL/min (70-130); Calcium 7.9 mg/dL (7.8-10.44); Carbon Dioxide 21 mmol/L (23-31); Chloride 113 mmol/L (98-107); Estimated GFR-MDRD 64; Globulin 2.5 g/dL (2.4-3.5); Glucose 107 mg/dL (83-110); Potassium 3.8 mmol/L (3.5-5.1); Protein, Total 5.2 g/dL (5.8-8.1); Sodium 142 mmol/L (136-145)
[2018-07-06] MEDS: Sodium Chloride 0.9% 1,000 ML IV SCH ×2 (06:21→22:26)
[2018-07-06] MEDS: Tamsulosin HCl 0.4 MG CAP PO SCH (09:24)
[2018-07-06] MEDS: Aspirin 325 MG TAB PO SCH (09:25)
[2018-07-06] MEDS: Amlodipine 5 MG TAB PO SCH (09:25)
[2018-07-06] MEDS: Erythromycin Base 0.5% Oint 1 GM TUBE L EYE SCH ×2 (09:26→22:27)
[2018-07-06] MEDS: Apixaban 2.5 MG TAB PO SCH ×2 (09:31→22:26)
--- NOTE | 2018-07-06 09:59 | PDOC.PN ---
- Subjective Encounter Start Date: 07/06/18 Encounter Start Time: 18:46 CC: Altered Mental status patient seen and examined. NAD - Objective Resuscitation Status: Resuscitation Status FULL:Full Resuscitation MAR Reviewed: Yes Vital Signs & Weight: Vital Signs (12 hours) Temp Pulse Resp BP BP Pulse Ox 07/06/18 09:25 49 L 113/54 L 07/06/18 07:31 97.6 F 50 L 12 113/54 L 96 07/06/18 04:23 98.0 F 54 L 16 113/44 L 96 07/06/18 00:00 98.2 F 54 L 16 113/50 L 96 Weight Weight 124 lb I&O: 07/05/18 07/06/18 07/07/18 06:59 06:59 06:59 Intake Total 50 800 Output Total 500 800 Balance -450 0 Result Diagrams: 07/13/18 08:11 07/13/18 08:11 Phys Exam - Physical Examination Constitutional: NAD HEENT: PERRLA, moist MMs Neck: no JVD, supple, full ROM Respiratory: no wheezing, no rales, no rhonchi, clear to auscultation bilateral Cardiovascular: RRR, no significant murmur Gastrointestinal: soft, non-tender, no distention Musculoskeletal: no edema, pulses present Neurological: non-focal, normal sensation, moves all 4 limbs Deviation from normal: confused Skin: no rash Dx/Plan (1) UTI (urinary tract infection) Status: Acute Comment: continue antibiotics. placement. (2) NENITA (acute kidney injury) Code(s): N17.9 - ACUTE KIDNEY FAILURE, UNSPECIFIED Status: Resolved Comment : (3) Encephalopathy acute Code(s): G93.40 - ENCEPHALOPATHY, UNSPECIFIED Status: Acute Comment: demented. Patient needs placement. Patient refused MOCA test. 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 continue (5) A-fib Code(s): I48.91 - UNSPECIFIED ATRIAL FIBRILLATION Status: Resolved Qualifiers: Atrial fibrillation type: paroxysmal Qualified Code(s): I48.0 - Paroxysmal atrial fibrillation Comment: continue eliquis - Plan * . Review of Systems - Medications/Allergies Allergies/Adverse Reactions: Allergies Allergy/AdvReac Type Severity Reaction Status Date / Time No Known Allergies Allergy Verified 07/03/18 23:51 Medications: Current Medications Amlodipine Besylate (Norvasc) 2.5 mg PO DAILY [facility] Last Admin: 07/06/18 09:25 Dose: Not Given Apixaban (Eliquis) 2.5 mg PO BID [facility] Last Admin: 07/06/18 09:31 Dose: 2.5 mg Aspirin (Aspirin) 325 mg PO QAM-[facility] Last Admin: 07/06/18 09:25 Dose: 325 mg Erythromycin (Erythromycin Base 0.5% Oint) 1 gm L EYE BID [facility] Last Admin: 07/06/18 09:26 Dose: 1 gm Ceftriaxone Sodium 1 gm/ (Sodium Chloride) 100 mls @ 200 mls/hr IVPB Q24HR [facility] Last Admin: 07/05/18 23:34 Dose: 100 mls Sodium Chloride (Normal Saline 0.9%) 1,000 mls @ 70 mls/hr IV .[id number] [facility] Last Admin: 07/06/18 06:21 Dose: 1,000 mls Lorazepam (Ativan) 1 mg SLOW IVP Q6H PRN PRN Reason: Anxiety/Agitation Last Admin: 07/04/18 21:39 Dose: 1 mg Ondansetron HCl (Zofran) 4 mg IVP Q6H PRN PRN Reason: Nausea/Vomiting Potassium Chloride (Klor-Con) 20 meq PO BID-[facility] Last Admin: 07/06/18 09:25 Dose: 20 meq Sodium Chloride (Flush - Normal Saline) 10 ml IVF PRN PRN PRN Reason: Saline Flush Tamsulosin HCl (Flomax) 0.4 mg PO DAILY [facility] Last Admin: 07/06/18 09:24 Dose: 0.4 mg
--- NOTE | 2018-07-06 12:42 | PQF ---
CLINICAL DOCUMENTATION IMPROVEMENT CLARIFICATION FORM: ICD-10 Updated PLEASE DO AN ADDENDUM TO THE PROGRESS NOTE WITH ANY DOCUMENTATION UPDATES OR ADDITIONS AND CARRY THROUGH TO DC SUMMARY. THANK YOU. DATE: 07/06 ATTN: DR. AMAURI MUHAMMAD Please exercise your independent, professional judgment in responding to the clarification form. Clinical indicators are provided on the bottom of this form for your review. Please check appropriate box(es): [ ] Sepsis due to: (Pna, UTI, gangrenous gall bladder, etc.) [ ] Severe sepsis with acute organ dysfunction of: (Examples: respiratory failure, encephalopathy, acute kidney failure, other) [ ] Localized infection without sepsis [ ] Other diagnosis [ ] Unable to determine For continuity of documentation, please document condition throughout progress notes and discharge summary. Thank You. CLINICAL INDICATORS - SIGNS / SYMPTOMS / LABS ER TRIAGE NOTES 07/03: AMS, UTI, SEPSIS ALERT IN [facility] UPON PT ARRIVAL. 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 Cris (This form is maintained as a part of the permanent medical record) 2014 [employer]. All Rights Reserved Cris Calvo RN, BSN [email or web address] Office: [phone] [facility]
[2018-07-06] MEDS: cefTRIAXone\\ROCEPHIN 1 GM in Sodium Chloride 0.9% 100 ML IVPB SCH (23:45)
[2018-07-07] MEDS: Apixaban 2.5 MG TAB PO SCH ×2 (09:09→20:09)
[2018-07-07] MEDS: Aspirin 325 MG TAB PO SCH (09:09)
[2018-07-07] MEDS: Tamsulosin HCl 0.4 MG CAP PO SCH (09:10)
[2018-07-07] MEDS: Amlodipine 5 MG TAB PO SCH (09:10)
[2018-07-07] MEDS: Erythromycin Base 0.5% Oint 1 GM TUBE L EYE SCH ×2 (09:10→20:09)
--- NOTE | 2018-07-07 11:19 | PDOC.PN ---
- Subjective Encounter Start Date: 07/07/18 Encounter Start Time: 11:18 patient seen and examined by me. CARLOS. - Objective Resuscitation Status: Resuscitation Status FULL:Full Resuscitation MAR Reviewed: Yes Vital Signs & Weight: Vital Signs (12 hours) Temp Pulse Resp BP BP Pulse Ox 07/07/18 09:10 55 L 102/52 L 07/07/18 07:31 98 F 55 L 16 102/52 L 93 L Weight Weight 124 lb I&O: 07/06/18 07/07/18 07/08/18 06:59 06:59 06:59 Intake Total 800 1140 Output Total 800 1100 Balance 0 40 Result Diagrams: 07/06/18 03:46 07/06/18 03:46 Phys Exam - Physical Examination Constitutional: NAD HEENT: PERRLA, moist MMs Neck: no JVD, supple, full ROM Respiratory: no wheezing, no rales, no rhonchi Cardiovascular: RRR, no significant murmur, no rub Gastrointestinal: soft, non-tender, no distention Musculoskeletal: no edema, pulses present Neurological: non-focal, normal sensation Psychiatric: normal affect Deviation from normal: confused. Skin: no rash, normal turgor Dx/Plan (1) UTI (urinary tract infection) Status: Acute Comment: continue antibiotics. placement. (2) NENITA (acute kidney injury) Code(s): N17.9 - ACUTE KIDNEY FAILURE, UNSPECIFIED Status: Resolved Comment : (3) Encephalopathy acute Code(s): G93.40 - ENCEPHALOPATHY, UNSPECIFIED Status: Acute Comment: Patient is currently confused. Patient needs placement. 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 continue (5) A-fib Code(s): I48.91 - UNSPECIFIED ATRIAL FIBRILLATION Status: Resolved Qualifiers: Atrial fibrillation type: paroxysmal Qualified Code(s): I48.0 - Paroxysmal atrial fibrillation Comment: continue eliquis - Plan * . Review of Systems - Review of Systems Constitutional: negative: fever, chills, sweats, weakness, malaise, other Eyes: negative: Pain, Vision Change, Conjunctivae Inflammation, Eyelid Inflammation, Redness, Other ENT: negative: Ear Pain, Ear Discharge, Nose Pain, Nose Discharge, Nose Congestion, Mouth Pain, Mouth Swelling, Throat Pain, Throat Swelling, Other Respiratory: negative: Cough, Dry, Shortness of Breath, Hemoptysis, SOB with Excertion, Pleuritic Pain, Sputum, Wheezing Cardiovascular: negative: chest pain, palpitations, orthopnea, paroxysmal nocturnal dyspnea, edema, light headedness, other Gastrointestinal: negative: Nausea, Vomiting, Abdominal Pain, Diarrhea, Constipation, Melena, Hematochezia, Other Genitourinary: negative: Dysuria, Frequency, Incontinence, Hematuria, Retention , Other Musculoskeletal: negative: Neck Pain, Shoulder Pain, Arm Pain, Back Pain, Hand Pain, Leg Pain, Foot Pain, Other Skin: negative: Rash, Lesions, Akshat, Bruising, Other Neurological: negative: Weakness, Numbness, Incoordination, Change in Speech, Confusion, Seizures, Other - Medications/Allergies Allergies/Adverse Reactions: Allergies Allergy/AdvReac Type Severity Reaction Status Date / Time No Known Allergies Allergy Verified 07/03/18 23:51 Medications: Current Medications Amlodipine Besylate (Norvasc) 2.5 mg PO DAILY [facility] Last Admin: 07/07/18 09:10 Dose: Not Given Apixaban (Eliquis) 2.5 mg PO BID [facility] Last Admin: 07/07/18 09:09 Dose: 2.5 mg Aspirin (Aspirin) 325 mg PO QAM-[facility] Last Admin: 07/07/18 09:09 Dose: 325 mg Erythromycin (Erythromycin Base 0.5% Oint) 1 gm L EYE BID [facility] Last Admin: 07/07/18 09:10 Dose: 1 gm Ceftriaxone Sodium 1 gm/ (Sodium Chloride) 100 mls @ 200 mls/hr IVPB Q24HR [facility] Last Admin: 07/06/18 23:45 Dose: 100 mls Sodium Chloride (Normal Saline 0.9%) 1,000 mls @ 70 mls/hr IV .[id number] [facility] Last Admin: 07/06/18 22:26 Dose: 1,000 mls Lorazepam (Ativan) 1 mg SLOW IVP Q6H PRN PRN Reason: Anxiety/Agitation Last Admin: 07/04/18 21:39 Dose: 1 mg Ondansetron HCl (Zofran) 4 mg IVP Q6H PRN PRN Reason: Nausea/Vomiting Potassium Chloride (Klor-Con) 20 meq PO BID-[facility] Last Admin: 07/07/18 09:09 Dose: 20 meq Sodium Chloride (Flush - Normal Saline) 10 ml IVF PRN PRN PRN Reason: Saline Flush Tamsulosin HCl (Flomax) 0.4 mg PO DAILY [facility] Last Admin: 07/07/18 09:10 Dose: 0.4 mg
[2018-07-07] MEDS: Sodium Chloride 0.9% 1,000 ML IV SCH ×2 (12:24→13:45)
[2018-07-07] MEDS: cefTRIAXone\\ROCEPHIN 1 GM in Sodium Chloride 0.9% 100 ML IVPB SCH (23:36)
[2018-07-08 04:29] LABS: Hemoglobin 9.7 g/dL (14.0-18.0); Platelet Count 202 thou/uL (130-400)
[2018-07-08] MEDS: Sodium Chloride 0.9% 1,000 ML IV SCH ×2 (04:58→17:13)
[2018-07-08] MEDS: Tamsulosin HCl 0.4 MG CAP PO SCH (08:44)
[2018-07-08] MEDS: Amlodipine 5 MG TAB PO SCH (08:44)
[2018-07-08] MEDS: Aspirin 325 MG TAB PO SCH (08:45)
[2018-07-08] MEDS: Erythromycin Base 0.5% Oint 1 GM TUBE L EYE SCH ×3 (08:46→20:14)
[2018-07-08] MEDS: Apixaban 2.5 MG TAB PO SCH ×2 (08:46→20:13)
--- NOTE | 2018-07-08 17:25 | PDOC.PN ---
- Subjective Encounter Start Date: 07/08/18 Encounter Start Time: 17:24 patient seen and examined by me. - Objective Resuscitation Status: Resuscitation Status FULL:Full Resuscitation MAR Reviewed: Yes Vital Signs & Weight: Vital Signs (12 hours) Temp Pulse Resp BP BP Pulse Ox 07/08/18 08:44 59 L 109/59 L 07/08/18 08:00 97.7 F 59 L 18 07/08/18 07:56 97.7 F 59 L 18 109/59 L 95 Weight Weight 124 lb I&O: 07/07/18 07/08/18 07/09/18 06:59 06:59 06:59 Intake Total 1140 2683 480 Output Total 1100 925 Balance 40 1758 480 Result Diagrams: 07/08/18 03:56 07/08/18 03:56 Phys Exam - Physical Examination Constitutional: NAD HEENT: PERRLA, moist MMs Neck: no JVD, supple, full ROM Respiratory: no wheezing, no rales, no rhonchi Cardiovascular: RRR, no significant murmur, no rub Gastrointestinal: soft, non-tender, no distention Musculoskeletal: pulses present Neurological: non-focal, normal sensation, moves all 4 limbs Psychiatric: normal affect, A&O x 3 Skin: no rash, normal turgor Dx/Plan (1) UTI (urinary tract infection) Status: Acute Comment: continue antibiotics. placement. (2) NENITA (acute kidney injury) Code(s): N17.9 - ACUTE KIDNEY FAILURE, UNSPECIFIED Status: Resolved Comment : (3) Encephalopathy acute Code(s): G93.40 - ENCEPHALOPATHY, UNSPECIFIED Status: Acute Comment: demented. Patient needs placement. Patient refused MOCA test. 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 continue (5) A-fib Code(s): I48.91 - UNSPECIFIED ATRIAL FIBRILLATION Status: Resolved Qualifiers: Atrial fibrillation type: paroxysmal Qualified Code(s): I48.0 - Paroxysmal atrial fibrillation Comment: continue eliquis (6) Dementia Code(s): F03.90 - UNSPECIFIED DEMENTIA WITHOUT BEHAVIORAL DISTURBANCE Status: Acute Comment: patient is demented. Need placement. - Plan * . Review of Systems - Review of Systems Constitutional: negative: fever, chills, sweats, weakness, malaise, other Eyes: negative: Pain, Vision Change, Conjunctivae Inflammation, Eyelid Inflammation, Redness, Other ENT: negative: Ear Pain, Ear Discharge, Nose Pain, Nose Discharge, Nose Congestion, Mouth Pain, Mouth Swelling, Throat Pain, Throat Swelling, Other Respiratory: negative: Cough, Dry, Shortness of Breath, Hemoptysis, SOB with Excertion, Pleuritic Pain, Sputum, Wheezing Cardiovascular: negative: chest pain, palpitations, orthopnea, paroxysmal nocturnal dyspnea, edema, light headedness, other Gastrointestinal: negative: Nausea, Vomiting, Abdominal Pain, Diarrhea, Constipation, Melena, Hematochezia, Other Genitourinary: negative: Dysuria, Frequency, Incontinence, Hematuria, Retention , Other Musculoskeletal: negative: Neck Pain, Shoulder Pain, Arm Pain, Back Pain, Hand Pain, Leg Pain, Foot Pain, Other Skin: negative: Rash, Lesions, Akshat, Bruising, Other Neurological: negative: Weakness, Numbness, Incoordination, Change in Speech, Confusion, Seizures, Other - Medications/Allergies Allergies/Adverse Reactions: Allergies Allergy/AdvReac Type Severity Reaction Status Date / Time No Known Allergies Allergy Verified 07/03/18 23:51 Medications: Current Medications Amlodipine Besylate (Norvasc) 2.5 mg PO DAILY [facility] Last Admin: 07/08/18 08:44 Dose: Not Given Apixaban (Eliquis) 2.5 mg PO BID [facility] Last Admin: 07/08/18 08:46 Dose: 2.5 mg Aspirin (Aspirin) 325 mg PO QAM-[facility] Last Admin: 07/08/18 08:45 Dose: 325 mg Erythromycin (Erythromycin Base 0.5% Oint) 1 gm L EYE BID [facility] Last Admin: 07/08/18 08:54 Dose: Not Given Ceftriaxone Sodium 1 gm/ (Sodium Chloride) 100 mls @ 200 mls/hr IVPB Q24HR [facility] Last Admin: 07/07/18 23:36 Dose: 100 mls Sodium Chloride (Normal Saline 0.9%) 1,000 mls @ 70 mls/hr IV .[id number] [facility] Last Admin: 07/08/18 17:13 Dose: 1,000 mls Lorazepam (Ativan) 1 mg SLOW IVP Q6H PRN PRN Reason: Anxiety/Agitation Last Admin: 07/04/18 21:39 Dose: 1 mg Ondansetron HCl (Zofran) 4 mg IVP Q6H PRN PRN Reason: Nausea/Vomiting Potassium Chloride (Klor-Con) 20 meq PO BID-[facility] Last Admin: 07/08/18 16:58 Dose: 20 meq Sodium Chloride (Flush - Normal Saline) 10 ml IVF PRN PRN PRN Reason: Saline Flush Tamsulosin HCl (Flomax) 0.4 mg PO DAILY [facility] Last Admin: 07/08/18 08:44 Dose: 0.4 mg
[2018-07-08] MEDS: cefTRIAXone\\ROCEPHIN 1 GM in Sodium Chloride 0.9% 100 ML IVPB SCH (22:59)
[2018-07-09] MEDS: Lorazepam 2 MG/ML VIAL SLOW IVP PRN (01:48)
[2018-07-09] MEDS: Sodium Chloride 0.9% 1,000 ML IV SCH ×3 (05:57→23:10)
[2018-07-09] MEDS: Amlodipine 5 MG TAB PO SCH (08:12)
[2018-07-09] MEDS: Tamsulosin HCl 0.4 MG CAP PO SCH (08:13)
[2018-07-09] MEDS: Erythromycin Base 0.5% Oint 1 GM TUBE L EYE SCH ×2 (08:13→20:26)
[2018-07-09] MEDS: Aspirin 325 MG TAB PO SCH (08:13)
[2018-07-09] MEDS: Apixaban 2.5 MG TAB PO SCH ×2 (08:13→20:25)
[2018-07-09] MEDS ORDERED: Eucerin (Mineral Oil/Petrolatum,White) 30 gm Jar TOP PRN (22:26)
--- NOTE | 2018-07-09 22:30 | PDOC.PN ---
- Subjective Encounter Start Date: 07/09/18 Encounter Start Time: 11:30 Patient seen and examined for Encephaloapthy. No new complaints. No overnight events - Objective Resuscitation Status: Resuscitation Status FULL:Full Resuscitation MAR Reviewed: Yes Vital Signs & Weight: Vital Signs (12 hours) Temp Pulse Resp BP BP Pulse Ox 07/09/18 19:55 98.1 F 56 L 16 129/54 L 136/45 L 94 L 07/09/18 17:45 97.9 F 47 L 16 146/70 H 96 07/09/18 11:49 98.1 F 47 L 14 112/53 L 96 Weight Weight 124 lb I&O: 07/08/18 07/09/18 07/10/18 06:59 06:59 06:59 Intake Total 2683 3204 960 Output Total 923 6525 1750 Balance 1758 929 -790 Result Diagrams: 07/08/18 03:56 07/08/18 03:56 Phys Exam - Physical Examination Constitutional: NAD Respiratory: no wheezing, no rhonchi Cardiovascular: RRR, no rub Gastrointestinal: soft, positive bowel sounds Dx/Plan - Plan IMPRESSION: 1. Toxic Metabolic Encephalopathy/Sepsis with acute organ dysfunction due to UTI - No urine cultures sent on admission 2. Chronic Afib on anticoagulation 3. NENITA due to #1 - improved 4. Elevated troponins due to sepsis/BPH 5. Other issues per previous notes PLAN: AM labs Cbt IV Ceftriaxone Consult Dr Tatum in AM since no cultures available - Had Staph UTI earlier this year Cont current meds as below Cont IVF Review of Systems - Review of Systems Respiratory: negative: Cough, Dry, Shortness of Breath, Hemoptysis, SOB with Excertion, Pleuritic Pain, Sputum, Wheezing Cardiovascular: negative: chest pain, palpitations, orthopnea, paroxysmal nocturnal dyspnea, edema, light headedness, other - Medications/Allergies Allergies/Adverse Reactions: Allergies Allergy/AdvReac Type Severity Reaction Status Date / Time No Known Allergies Allergy Verified 07/03/18 23:51 Medications: Current Medications Amlodipine Besylate (Norvasc) 2.5 mg PO DAILY [facility] Last Admin: 07/09/18 08:12 Dose: 2.5 mg Apixaban (Eliquis) 2.5 mg PO BID [facility] Last Admin: 07/09/18 20:25 Dose: 2.5 mg Aspirin (Aspirin) 325 mg PO QAM-[facility] Last Admin: 07/09/18 08:13 Dose: 325 mg Erythromycin (Erythromycin Base 0.5% Oint) 1 gm L EYE BID [facility] Last Admin: 07/09/18 20:26 Dose: 1 gm Ceftriaxone Sodium 1 gm/ (Sodium Chloride) 100 mls @ 200 mls/hr IVPB Q24HR [facility] Last Admin: 07/08/18 22:59 Dose: 100 mls Sodium Chloride (Normal Saline 0.9%) 1,000 mls @ 70 mls/hr IV .[id number] [facility] Last Admin: 07/09/18 08:17 Dose: 1,000 mls Lorazepam (Ativan) 1 mg SLOW IVP Q6H PRN PRN Reason: Anxiety/Agitation Last Admin: 07/09/18 01:48 Dose: 1 mg Ondansetron HCl (Zofran) 4 mg IVP Q6H PRN PRN Reason: Nausea/Vomiting Potassium Chloride (Klor-Con) 20 meq PO BID-[facility] Last Admin: 07/09/18 16:42 Dose: 20 meq Sodium Chloride (Flush - Normal Saline) 10 ml IVF PRN PRN PRN Reason: Saline Flush Tamsulosin HCl (Flomax) 0.4 mg PO DAILY [facility] Last Admin: 07/09/18 08:13 Dose: 0.4 mg
[2018-07-09] MEDS: cefTRIAXone\\ROCEPHIN 1 GM in Sodium Chloride 0.9% 100 ML IVPB SCH (23:09)
[2018-07-10 05:16] LABS: Albumin 2.5 g/dL (3.4-4.8); Anion Gap 10 mmol/L (10-20); BUN (Urea Nitrogen) 12 mg/dL (8.4-25.7); BUN/Creatinine Ratio 10.71; Calc. Creatinine Clearance 38 mL/min (70-130); Calcium 8.2 mg/dL (7.8-10.44); Carbon Dioxide 24 mmol/L (23-31); Chloride 110 mmol/L (98-107); Estimated GFR-MDRD 62; Glucose 94 mg/dL (83-110); Magnesium 1.9 mg/dL (1.6-2.6); Phosphorus 2.9 mg/dL (2.3-4.7); Potassium 4.8 mmol/L (3.5-5.1); Sodium 139 mmol/L (136-145)
[2018-07-10 05:43] LABS: Band 4 % (5-11); Eosinophils 1 % (0-10); Hemoglobin 10.2 g/dL (14.0-18.0); Hypochromia SLIGHT = 6-15 cells (100X) (0-5/hpf); Lymphocytes 22 % (21-51); MDiff Complete? YES; Mean Corpuscular HGB CONC 33.6 g/dL (32.0-36.0); Mean Platelet Volume 7.8 fL (7.4-10.4); Monocytes 19 % (0-10); Neutrophil 54 % (42-75); PLT Morphology Comment Appears Adequate; Platelet Count 218 thou/uL (130-400); RBC Distribution Width 13.4 % (11.5-14.5); Red Blood Cell (RBC) Count 3.11 mill/uL (4.70-6.10); White Blood Cell (WBC) Count 9.2 thou/uL (4.8-10.8)
[2018-07-10 05:50] LABS: Folate (Folic Acid) 6.1 ng/mL (7.0-31.4)
[2018-07-10] MEDS: Tamsulosin HCl 0.4 MG CAP PO SCH (08:54)
[2018-07-10] MEDS: Senokot S 8.6-50 MG TAB PO SCH ×2 (08:54→21:39)
[2018-07-10] MEDS: Aspirin 325 MG TAB PO SCH (08:54)
[2018-07-10] MEDS: Erythromycin Base 0.5% Oint 1 GM TUBE L EYE SCH ×2 (08:55→21:39)
[2018-07-10] MEDS: Amlodipine 5 MG TAB PO SCH (09:00)
[2018-07-10] MEDS: Apixaban 2.5 MG TAB PO SCH ×2 (09:56→21:39)
[2018-07-10] MEDS ORDERED: Cyanocobalamin (Vitamin B-12) 1,000 MCG TAB PO SCH (10:00)
[2018-07-10] MEDS ORDERED: Folic Acid 1 MG TAB PO SCH (10:00)
[2018-07-10] MEDS: Polyethylene Glycol 3350 17 GM Packet PO SCH (13:59)
--- NOTE | 2018-07-10 22:29 | PDOC.PN ---
- Subjective Encounter Start Date: 07/10/18 Encounter Start Time: 14:00 Patient seen and examined for Encephalopathy. No new complaints. No overnight events - Objective Resuscitation Status: Resuscitation Status FULL:Full Resuscitation MAR Reviewed: Yes Vital Signs & Weight: Vital Signs (12 hours) Temp Pulse Resp BP Pulse Ox 07/10/18 20:00 98.5 F 61 18 161/66 H 95 07/10/18 16:00 98.2 F 55 L 16 170/71 H 93 L 07/10/18 12:00 98.2 F 49 L 16 119/52 L 96 Weight Weight 124 lb I&O: 07/09/18 07/10/18 07/11/18 06:59 06:59 06:59 Intake Total 3204 2273 500 Output Total 2275 3700 Balance 929 -1427 500 Result Diagrams: 07/10/18 04:43 07/10/18 04:43 Phys Exam - Physical Examination Constitutional: NAD Respiratory: no wheezing, no rhonchi Cardiovascular: RRR, no rub Gastrointestinal: soft, non-tender, positive bowel sounds Musculoskeletal: no edema Neurological: moves all 4 limbs Dx/Plan - Plan IMPRESSION: 1. Toxic Metabolic Encephalopathy/Sepsis with acute organ dysfunction due to UTI - No urine cultures sent on admission 2. Chronic Afib on anticoagulation 3. 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 Elevated troponins due to sepsis/BPH / Chronic indwelling turk catheter / Folic acid def / Moderate PEM 5. Other issues per previous notes PLAN: Cont to monitor Cont IV Ceftriaxone Cont current meds as below Cont IVF - reduce rate to 50 ml/hr AM labs Replace Folic acid Cont PT/OT DC PO Potassium Laboratory Tests 07/10/18 04:43 Folate 6.10 L Review of Systems - Review of Systems Respiratory: negative: Cough, Dry, Shortness of Breath, Hemoptysis, SOB with Excertion, Pleuritic Pain, Sputum, Wheezing Cardiovascular: negative: chest pain, palpitations, orthopnea, paroxysmal nocturnal dyspnea, edema, light headedness, other - Medications/Allergies Allergies/Adverse Reactions: Allergies Allergy/AdvReac Type Severity Reaction Status Date / Time No Known Allergies Allergy Verified 07/03/18 23:51 Medications: Current Medications Amlodipine Besylate (Norvasc) 2.5 mg PO DAILY [facility] Last Admin: 07/10/18 09:00 Dose: Not Given Apixaban (Eliquis) 2.5 mg PO BID [facility] Last Admin: 07/10/18 21:39 Dose: 2.5 mg Aspirin (Aspirin) 325 mg PO QAM-[facility] Last Admin: 07/10/18 08:54 Dose: 325 mg Cyanocobalamin (Vitamin B-12) 1,000 mcg PO DAILY [facility] Erythromycin (Erythromycin Base 0.5% Oint) 1 gm L EYE BID [facility] Last Admin: 07/10/18 21:39 Dose: Not Given Folic Acid (Folvite) 1 mg PO DAILY [facility] Ceftriaxone Sodium 1 gm/ (Sodium Chloride) 100 mls @ 200 mls/hr IVPB Q24HR [facility] Last Admin: 07/09/18 23:09 Dose: 100 mls Sodium Chloride (Normal Saline 0.9%) 1,000 mls @ 70 mls/hr IV .[id number] [facility] Last Admin: 07/09/18 23:10 Dose: 1,000 mls Mineral Oil/White Petrolatum (Eucerin Cream) 0 gm TOP BIDPRN PRN PRN Reason: Dry Skin Ondansetron HCl (Zofran) 4 mg IVP Q6H PRN PRN Reason: Nausea/Vomiting Polyethylene Glycol (Miralax) 17 gm PO DAILY [facility] Last Admin: 07/10/18 13:59 Dose: Not Given Potassium Chloride (Klor-Con) 20 meq PO BID-[facility] Last Admin: 07/10/18 18:29 Dose: Not Given Senna/Docusate Sodium (Senokot S) 1 tab PO BID [facility] Last Admin: 07/10/18 21:39 Dose: 1 tab Sodium Chloride (Flush - Normal Saline) 10 ml IVF PRN PRN PRN Reason: Saline Flush Tamsulosin HCl (Flomax) 0.4 mg PO DAILY [facility] Last Admin: 07/10/18 08:54 Dose: 0.4 mg
[2018-07-10] MEDS: cefTRIAXone\\ROCEPHIN 1 GM in Sodium Chloride 0.9% 100 ML IVPB SCH (23:59)
[2018-07-10] MEDS: Sodium Chloride 0.9% 1,000 ML IV SCH (23:59)
[2018-07-11 06:16] LABS: ALT (SGPT) 7 U/L (8-55); AST (SGOT) 12 U/L (5-34); Albumin 2.7 g/dL (3.4-4.8); Alkaline Phosphatase 49 U/L (40-150); Anion Gap 11 mmol/L (10-20); BUN (Urea Nitrogen) 13 mg/dL (8.4-25.7); Bilirubin, Total 0.2 mg/dL (0.2-1.2); Calc. Creatinine Clearance 41 mL/min (70-130); Calcium 8.3 mg/dL (7.8-10.44); Carbon Dioxide 24 mmol/L (23-31); Chloride 108 mmol/L (98-107); Estimated GFR-MDRD 69; Globulin 2.7 g/dL (2.4-3.5); Glucose 97 mg/dL (83-110); Potassium 4.1 mmol/L (3.5-5.1); Protein, Total 5.4 g/dL (5.8-8.1); Sodium 139 mmol/L (136-145)
[2018-07-11 06:39] LABS: Band 2 % (5-11); Eosinophils 6 % (0-10); Hemoglobin 10.5 g/dL (14.0-18.0); Lymphocytes 28 % (21-51); MDiff Complete? YES; Mean Corpuscular HGB CONC 33.8 g/dL (32.0-36.0); Mean Corpuscular Volume 97.8 fL (78.0-98.0); Mean Platelet Volume 7.3 fL (7.4-10.4); Monocytes 13 % (0-10); Neutrophil 51 % (42-75); PLT Morphology Comment Appears Adequate; Platelet Count 225 thou/uL (130-400); RBC Distribution Width 13.3 % (11.5-14.5); Red Blood Cell (RBC) Count 3.18 mill/uL (4.70-6.10); White Blood Cell (WBC) Count 11.5 thou/uL (4.8-10.8)
[2018-07-11] MEDS: Aspirin 325 MG TAB PO SCH (08:21)
[2018-07-11] MEDS: Amlodipine 5 MG TAB PO SCH (08:21)
[2018-07-11] MEDS: Cyanocobalamin (Vitamin B-12) 1,000 MCG TAB PO SCH (08:23)
[2018-07-11] MEDS: Tamsulosin HCl 0.4 MG CAP PO SCH (08:23)
[2018-07-11] MEDS: Senokot S 8.6-50 MG TAB PO SCH ×2 (08:23→21:20)
[2018-07-11] MEDS: Folic Acid 1 MG TAB PO SCH (08:24)
[2018-07-11] MEDS: Apixaban 2.5 MG TAB PO SCH ×2 (08:24→21:18)
[2018-07-11] MEDS: Sodium Chloride 0.9% 1,000 ML IV SCH ×2 (08:25→21:20)
--- NOTE | 2018-07-11 08:25 | CON ---
DATE OF CONSULTATION: 07/10/2018 REASON FOR CONSULTATION: Change in mental status, possible sepsis. 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 The patient also has an artificial heart valve on chronic anticoagulation and recently in was admitted with encephalopathy, volume depletion, possible Staphylococcus aureus infection. In April, he presented with lack of responsiveness. He was found in a school bus and initially he was tachycardic with a pulse of 143, O2 sat 99%, blood pressure 108/73. The initial impression was acute renal failure with elevated lactate and tachycardia, possible sepsis. His initial white cell count was 21,000 with predominance of mature neutrophils. Subsequently, he developed marked leukemoid reaction with bandemia. The patient had marked decrease in renal function with creatinine that peaked at 8.2 two days after admission. Urine culture identified Staphylococcus haemolyticus 75-100,000 CFUs per mL and urinalysis with greater than 50 to too numerous to count WBCs. Imaging studies included abdomen and pelvis CT scan which showed prominence of multiple distal small bowel loops, diverticulosis, but no diverticulitis. Chest x-ray did not show any evidence of pulmonary infiltrates. Abdominal ultrasound demonstrated distended gallbladder filled with a large amount of echogenic sludge with mural thickening and pericholecystic fluid and questionable diffuse dilation of intrahepatic biliary tree. The patient was given Rocephin and Zosyn. The discharge diagnoses included acute encephalopathy, dehydration, acute kidney injury, and urinary tract infection with Staphylococcus species. At this time, his white cell count was at 6000 with normal platelets, hemoglobin 10.7 and a normal differential except for monocytosis. Sodium on arrival was 140 with creatinine of 1.33 and albumin 2.9. Currently, Mr. Self is awake, pleasant. He has very limited recollection of events and cannot provide adequate subjective reporting; therefore review of systems is quite limited at this moment. He does not appear in distress and he denied pain pretty much everywhere, had not been vomiting, no diarrhea. He had a Traore catheter inserted, was voiding with the assistance of catheter. PAST MEDICAL HISTORY: Includes coronary artery disease, aortic valve replacement, atrial fibrillation, chronic anticoagulation, hypertension, cognitive dysfunction with dementia, positive urine cultures with abnormal urinalysis, episode of volume depletion which led to acute renal failure which was ascribed to the urinary findings. Also, with normal gallbladder ultrasound with possible acalculous cholecystitis identified during the [facility] admission. PAST SURGICAL HISTORY: Includes prostate surgeries, possibly TURPs, heart valve replacement, skin cancer. SOCIAL HISTORY: snf resident. Never a smoker. FAMILY HISTORY: Noncontributory. ALLERGIES: None. CURRENT MEDICATIONS: Includes Norvasc, Eliquis, aspirin, ceftriaxone, erythromycin, folic acid, ondansetron, potassium, tamsulosin. PHYSICAL EXAMINATION: VITAL SIGNS: Here in the hospital, vital signs are normal. Blood pressure 119/ 52, pulse 49, respirations 16, O2 sat 93%-96%. SKIN: Not remarkable. Patient has a peripheral IV access and a Traore catheter. He has no lymphadenopathy. HEENT: Ocular movements conjugate. Pupils are equal. Oral cavity with no havasupai teeth left. Oral mucosa is normal. NECK: Supple, no jugular distention. LUNGS: Symmetric air entry. HEART: S1, S2, regular rate. No S3, S4. ABDOMEN: Soft, not distended. EXTREMITIES: No joint inflammatory activity. Pulses 1+ in dorsalis pedis. He is able to move extremities on command. NEUROLOGIC: Cognitive function is quite limited. His knows his name, but could not tell me the location except that he was in the hospital, could not tell me the date and recollection for the events were very limited. LABORATORY DATA: Sodium 139, creatinine is at 1.12, calcium 8.2, magnesium 1.9 , albumin 2.5, folate 6.1. White cell count is 9.2, hemoglobin 10.2, MCV 98, platelets 218 with 54% neutrophils, 4% bands, 22% lymphocytes. Microbiology with no urine cultures submitted. He has negative blood cultures x2. IMAGING STUDIES: Include chest x-ray with no acute intrathoracic findings, Brain CT with atrophy and ischemic changes including old left thalamic lacunar infarct. The patient had a brain MRI in April, which showed small vessel ischemic disease, but no acute intracranial abnormality. ASSESSMENT: 1. 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 2. Coronary artery disease. 3. Aortic valve replacement on chronic blood thinners. 4. Recurrent episodes of mental status change which have been previously ascribed to urinary tract infection with this time again precipitating admission to the hospital. Although in all the notes that I have read regarding this admission, it is stated that the patient was brought from prison, I spoke with the nurse that is taking care of the patient and apparently this is not the case and the patient was living in a converted bus, a sort of a trailer home, which the patient was occupying. I need to clarify this issue, which would be critical as to the proper interpretation of the current clinical findings that led to admission, particularly in view of the patient's likely chronic cognitive issues and issues related to his ability to care for self. It is also not clear if he had a urinary catheter in place when he was admitted this time and were had been inserted and who was taking care of that. It looks like the Traore catheter was present on admission because it was replaced upon arrival in the emergency room this time. DISCUSSION: The differential diagnosis includes problems with activities of daily living and self-care due to lack of proper supervision in the setting of chronic cognitive dysfunction. It is not clear what the change in mental status was in reality as compared with his baseline. In April, he presented with acute renal insufficiency, probably secondary to volume depletion. He did have the abnormal gallbladder ultrasound, which needs to be evaluated again to see what those changes have resulted in, they were significant in April and again need to be followed up. We will go ahead and repeat the ultrasound of the abdomen. I am not sure that the urinary findings are responsible for the patient's symptoms and evidently somebody with an indwelling Traore catheter will necessarily have abnormal urinalysis and positive urine cultures. So the essential component of the evaluation is to find out exactly what his living arrangements are, who is monitoring it and if there was anybody witnessed his mental status changes. We will go ahead and repeat the abdominal ultrasound. In terms of treating this urinary finding, the treatment has already been initiated. I do not recommend continuation of antimicrobials following discharge planning. Voiding trial probably would be ideal to see if he could be without Traore catheter but he may have to receive a course of BPH meds prior to attempt. Addendum: I have discussed the patient's situation with Allyson social science research assistant, and apparently patient does not live in a prison. He stays in a converted bus that sits in a property that he used to own, but he sold to somebody else and they allowed him to stay in the property. Apparently, he does not have proper facilities and uses the new property owners' facilities for bathing and for other toiletry functions. Evidently, this seems to be the main factor in patient's clinical deterioration, and I am not sure that he is in a situation that is conducive to stability and if he goes back to the same setting as before, we will see this recurring pattern of readmissions for "change in mental status." I think this, more than any other clinical factor, is the dominant issue leading to readmission. JR
[2018-07-11] MEDS: Polyethylene Glycol 3350 17 GM Packet PO SCH ×2 (08:26→08:30)
--- NOTE | 2018-07-11 08:58 | ULT ---
RIGHT UPPER QUADRANT ULTRASOUND: Date: 07/11/18 HISTORY: Abdominal pain, follow-up from exam of 05/01/18. FINDINGS: There is sludge in the gallbladder. No shadowing gallstones, gallbladder wall thickening, or perichol ecystic fluid is seen. The common duct measures 4.0 mm in diameter. The liver demonstrates homogeneou s echotexture without focal mass or intrahepatic ductal dilatation. The right kidney is unremarkable. The visualized portions of the pancreas are unremarkable. No free fluid is seen in Morison's pouch. Right pleural effusion is present. IMPRESSION: 1. Right pleural effusion. 2. Gallbladder sludge. POS: OFF
[2018-07-11] MEDS: Erythromycin Base 0.5% Oint 1 GM TUBE L EYE SCH ×2 (13:53→21:20)
--- NOTE | 2018-07-11 23:11 | PDOC.PN ---
- Subjective Encounter Start Date: 07/11/18 Encounter Start Time: 11:15 Patient seen and examined for Encephalopathy. Mentation same. No new complaints. No overnight events - Objective Resuscitation Status: Resuscitation Status FULL:Full Resuscitation MAR Reviewed: Yes Vital Signs & Weight: Vital Signs (12 hours) Temp Pulse Resp BP Pulse Ox 07/11/18 20:00 98.1 F 70 18 121/54 L 96 Weight Weight 124 lb I&O: 07/10/18 07/11/18 07/12/18 06:59 06:59 06:59 Intake Total 2273 1430 1700 Output Total 3700 1800 1900 Balance -8923 -174 -861 Result Diagrams: 07/11/18 05:47 07/11/18 05:47 Radiology Reviewed by me: No (RUQ USG - GB sludge) Phys Exam - Physical Examination Constitutional: NAD Respiratory: no wheezing, no rhonchi Cardiovascular: RRR, no rub Gastrointestinal: soft, non-tender, positive bowel sounds Musculoskeletal: no edema Neurological: moves all 4 limbs Dx/Plan - Plan IMPRESSION: 1. Toxic Metabolic Encephalopathy/Sepsis with acute organ dysfunction due to UTI - No urine cultures sent on admission 2. Chronic Afib on anticoag 3. 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 Elevated troponins due to sepsis/BPH / Chronic indwelling turk catheter / Folic acid def / Moderate PEM 5. Other issues per previous notes PLAN: Cont IV Ceftriaxone with IVF Cont Amlodipine Cont current meds as below Cont PT/OT DC planning Review of Systems - Review of Systems Respiratory: negative: Cough, Dry, Shortness of Breath, Hemoptysis, SOB with Excertion, Pleuritic Pain, Sputum, Wheezing Cardiovascular: negative: chest pain, palpitations, orthopnea, paroxysmal nocturnal dyspnea, edema, light headedness, other - Medications/Allergies Allergies/Adverse Reactions: Allergies Allergy/AdvReac Type Severity Reaction Status Date / Time No Known Allergies Allergy Verified 07/03/18 23:51 Medications: Current Medications Amlodipine Besylate (Norvasc) 2.5 mg PO DAILY [facility] Last Admin: 07/11/18 08:21 Dose: 2.5 mg Apixaban (Eliquis) 2.5 mg PO BID [facility] Last Admin: 07/11/18 21:18 Dose: 2.5 mg Aspirin (Aspirin) 325 mg PO [facility] Last Admin: 07/11/18 08:21 Dose: 325 mg Cyanocobalamin (Vitamin B-12) 1,000 mcg PO DAILY [facility] Last Admin: 07/11/18 08:23 Dose: 1,000 mcg Erythromycin (Erythromycin Base 0.5% Oint) 1 gm L EYE BID [facility] Last Admin: 07/11/18 21:20 Dose: 1 gm Folic Acid (Folvite) 1 mg PO DAILY [facility] Last Admin: 07/11/18 08:24 Dose: 1 mg Ceftriaxone Sodium 1 gm/ (Sodium Chloride) 100 mls @ 200 mls/hr IVPB Q24HR [facility] Last Admin: 07/10/18 23:59 Dose: 100 mls Sodium Chloride (Normal Saline 0.9%) 1,000 mls @ 50 mls/hr IV .Q20H [facility] Last Admin: 07/11/18 21:20 Dose: 1,000 mls Mineral Oil/White Petrolatum (Eucerin Cream) 0 gm TOP BIDPRN PRN PRN Reason: Dry Skin Ondansetron HCl (Zofran) 4 mg IVP Q6H PRN PRN Reason: Nausea/Vomiting Polyethylene Glycol (Miralax) 17 gm PO DAILY [facility] Last Admin: 07/11/18 08:30 Dose: Not Given Senna/Docusate Sodium (Senokot S) 1 tab PO BID [facility] Last Admin: 07/11/18 21:20 Dose: Not Given Sodium Chloride (Flush - Normal Saline) 10 ml IVF PRN PRN PRN Reason: Saline Flush Tamsulosin HCl (Flomax) 0.4 mg PO DAILY [facility] Last Admin: 07/11/18 08:23 Dose: 0.4 mg
[2018-07-12] MEDS: cefTRIAXone\\ROCEPHIN 1 GM in Sodium Chloride 0.9% 100 ML IVPB SCH ×2 (00:10→22:24)
[2018-07-12] MEDS: Erythromycin Base 0.5% Oint 1 GM TUBE L EYE SCH ×2 (08:11→22:23)
[2018-07-12] MEDS: Aspirin 325 MG TAB PO SCH (08:12)
[2018-07-12] MEDS: Cyanocobalamin (Vitamin B-12) 1,000 MCG TAB PO SCH (08:12)
[2018-07-12] MEDS: Apixaban 2.5 MG TAB PO SCH ×2 (08:12→22:23)
[2018-07-12] MEDS: Amlodipine 5 MG TAB PO SCH (08:12)
[2018-07-12] MEDS: Senokot S 8.6-50 MG TAB PO SCH ×2 (08:13→22:23)
[2018-07-12] MEDS: Polyethylene Glycol 3350 17 GM Packet PO SCH (08:13)
[2018-07-12] MEDS: Tamsulosin HCl 0.4 MG CAP PO SCH (08:13)
[2018-07-12] MEDS: Folic Acid 1 MG TAB PO SCH (08:13)
--- NOTE | 2018-07-12 13:27 | EKG ---
Test Reason : Blood Pressure : / mmHG Vent. Rate : 000 BPM Atrial Rate : 000 BPM P-R Int : 000 ms QRS Dur : 000 ms QT Int : 490 ms P-R-T Axes : 000 070 060 degrees QTc Int : 000 ms Junctional rhythm Abnormal ECG Confirmed by DAVID PARKER ([id number]), avid editor KELLIE MINER ([id number]) on 07/12/2018 1:26:57 PM Referred By: Confirmed By:DAVID PARKER
--- NOTE | 2018-07-12 21:13 | PDOC.PN ---
- Subjective Encounter Start Date: 07/12/18 Encounter Start Time: 12:00 Patient seen and examined for AMS. No new complaints. No overnight events - Objective Resuscitation Status: Resuscitation Status FULL:Full Resuscitation MAR Reviewed: Yes Vital Signs & Weight: Vital Signs (12 hours) Temp Pulse Resp BP Pulse Ox 07/12/18 20:37 97.7 F 79 16 127/85 95 07/12/18 16:00 98.6 F 56 L 16 133/50 L 95 07/12/18 11:01 98.4 F 53 L 16 128/56 L 96 Weight Weight 124 lb I&O: 07/11/18 07/12/18 07/13/18 06:59 06:59 06:59 Intake Total 1430 2351 1311 Output Total 1800 3100 1200 Balance -370 -749 111 Result Diagrams: 07/13/18 08:11 07/13/18 08:11 Phys Exam - Physical Examination Constitutional: NAD Respiratory: no wheezing, no rhonchi Cardiovascular: RRR, no rub Gastrointestinal: soft, positive bowel sounds turk + Musculoskeletal: no edema Neurological: moves all 4 limbs Dx/Plan - Plan IMPRESSION: 1. Toxic Metabolic Encephalopathy/Sepsis with acute organ dysfunction due to UTI - No urine cultures sent on admission 2. Chronic Afib on anticoag 3. 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 Elevated troponins due to sepsis/BPH / Chronic indwelling turk catheter / Folic acid def / Moderate PEM 5. Other issues per previous notes PLAN: Cont IV Ceftriaxone with IVF - Change to PO at dc Stable for dc - No family available Cont Amlodipine Cont current meds as below Cont PT/OT DC planning Review of Systems - Review of Systems Respiratory: negative: Cough, Dry, Shortness of Breath, Hemoptysis, SOB with Excertion, Pleuritic Pain, Sputum, Wheezing Cardiovascular: negative: chest pain, palpitations, orthopnea, paroxysmal nocturnal dyspnea, edema, light headedness, other - Medications/Allergies Allergies/Adverse Reactions: Allergies Allergy/AdvReac Type Severity Reaction Status Date / Time No Known Allergies Allergy Verified 07/03/18 23:51 Medications: Current Medications Amlodipine Besylate (Norvasc) 2.5 mg PO DAILY [facility] Last Admin: 07/12/18 08:12 Dose: Not Given Apixaban (Eliquis) 2.5 mg PO BID [facility] Last Admin: 07/12/18 08:12 Dose: Not Given Aspirin (Aspirin) 325 mg PO QAM-WM [facility] Last Admin: 07/12/18 08:12 Dose: Not Given Cyanocobalamin (Vitamin B-12) 1,000 mcg PO DAILY [facility] Last Admin: 07/12/18 08:12 Dose: Not Given Erythromycin (Erythromycin Base 0.5% Oint) 1 gm L EYE BID [facility] Last Admin: 07/12/18 08:11 Dose: 1 gm Folic Acid (Folvite) 1 mg PO DAILY [facility] Last Admin: 07/12/18 08:13 Dose: Not Given Ceftriaxone Sodium 1 gm/ (Sodium Chloride) 100 mls @ 200 mls/hr IVPB Q24HR [facility] Last Admin: 07/12/18 00:10 Dose: 100 mls Sodium Chloride (Normal Saline 0.9%) 1,000 mls @ 50 mls/hr IV .Q20H [facility] Last Admin: 07/11/18 21:20 Dose: 1,000 mls Mineral Oil/White Petrolatum (Eucerin Cream) 0 gm TOP BIDPRN PRN PRN Reason: Dry Skin Ondansetron HCl (Zofran) 4 mg IVP Q6H PRN PRN Reason: Nausea/Vomiting Polyethylene Glycol (Miralax) 17 gm PO DAILY [facility] Last Admin: 07/12/18 08:13 Dose: Not Given Senna/Docusate Sodium (Senokot S) 1 tab PO BID [facility] Last Admin: 07/12/18 08:13 Dose: Not Given Sodium Chloride (Flush - Normal Saline) 10 ml IVF PRN PRN PRN Reason: Saline Flush Tamsulosin HCl (Flomax) 0.4 mg PO DAILY [facility] Last Admin: 07/12/18 08:13 Dose: Not Given
[2018-07-13] MEDS: Tamsulosin HCl 0.4 MG CAP PO SCH (07:56)
[2018-07-13] MEDS: Cyanocobalamin (Vitamin B-12) 1,000 MCG TAB PO SCH (07:56)
[2018-07-13] MEDS: Amlodipine 5 MG TAB PO SCH (07:56)
[2018-07-13] MEDS: Polyethylene Glycol 3350 17 GM Packet PO SCH (07:56)
[2018-07-13] MEDS: Apixaban 2.5 MG TAB PO SCH ×2 (07:56→20:18)
[2018-07-13] MEDS: Aspirin 325 MG TAB PO SCH (07:56)
[2018-07-13] MEDS: Senokot S 8.6-50 MG TAB PO SCH ×2 (07:56→20:18)
[2018-07-13] MEDS: Folic Acid 1 MG TAB PO SCH (07:56)
[2018-07-13 08:50] LABS: Anion Gap 12 mmol/L (10-20); BUN (Urea Nitrogen) 14 mg/dL (8.4-25.7); Calc. Creatinine Clearance 43 mL/min (70-130); Calcium 8.3 mg/dL (7.8-10.44); Carbon Dioxide 23 mmol/L (23-31); Chloride 109 mmol/L (98-107); Estimated GFR-MDRD 73; Glucose 116 mg/dL (83-110); Potassium 3.9 mmol/L (3.5-5.1); Sodium 140 mmol/L (136-145)
[2018-07-13 08:58] LABS: Band 2 % (5-11); Eosinophils 13 % (0-10); Hemoglobin 10.9 g/dL (14.0-18.0); Lymphocytes 24 % (21-51); MDiff Complete? YES; Mean Corpuscular Hemoglobin 33.5 pg (27.0-31.0); Mean Corpuscular Volume 98.4 fL (78.0-98.0); Mean Platelet Volume 7.4 fL (7.4-10.4); Monocytes 16 % (0-10); Neutrophil 44 % (42-75); PLT Morphology Comment Appears Adequate; Platelet Count 213 thou/uL (130-400); RBC Distribution Width 13.4 % (11.5-14.5); RBC Morphology Normal; Reactive Lymphocytes 1 % (0-10); Red Blood Cell (RBC) Count 3.26 mill/uL (4.70-6.10); White Blood Cell (WBC) Count 6.8 thou/uL (4.8-10.8)
[2018-07-13 11:48] VITALS: BMI 17.8
[2018-07-13] MEDS: Sodium Chloride 0.9% 1,000 ML IV SCH (12:23)
[2018-07-13] MEDS: Erythromycin Base 0.5% Oint 1 GM TUBE L EYE SCH ×3 (14:45→20:22)
--- NOTE | 2018-07-13 23:48 | PDOC.PN ---
- Subjective Encounter Start Date: 07/13/18 Encounter Start Time: 11:30 Patient seen and examined for AMS. No new complaints. No overnight events - Objective Resuscitation Status: Resuscitation Status FULL:Full Resuscitation MAR Reviewed: Yes Vital Signs & Weight: Vital Signs (12 hours) Temp Pulse Resp BP Pulse Ox 07/13/18 20:00 98.1 F 48 L 18 126/51 L 95 Weight Admit Weight 123 lb 11.2 oz Weight 124 lb I&O: 07/12/18 07/13/18 07/14/18 06:59 06:59 06:59 Intake Total 2351 2181 1560 Output Total 3100 2050 900 Balance -749 131 660 Result Diagrams: 07/13/18 08:11 07/13/18 08:11 Phys Exam - Physical Examination Constitutional: NAD Respiratory: no wheezing, no rhonchi Cardiovascular: RRR, no rub Gastrointestinal: soft, no distention, positive bowel sounds Dx/Plan - Plan PT/OT, social scientist IMPRESSION: 1. Toxic Metabolic Encephalopathy/Sepsis with acute organ dysfunction due to UTI - No urine cultures sent on admission 2. Chronic Afib on anticoag 3. 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 Elevated troponins due to sepsis/BPH / Chronic indwelling turk catheter / Folic acid def / Moderate PEM 5. Other issues per previous notes PLAN: dc IV Ceftriaxone Stable for dc - CM working on SNF Cont other meds including Amlodipine/ASA/Eliquis Review of Systems - Review of Systems Respiratory: negative: Cough, Dry, Shortness of Breath, Hemoptysis, SOB with Excertion, Pleuritic Pain, Sputum, Wheezing Cardiovascular: negative: chest pain, palpitations, orthopnea, paroxysmal nocturnal dyspnea, edema, light headedness, other - Medications/Allergies Allergies/Adverse Reactions: Allergies Allergy/AdvReac Type Severity Reaction Status Date / Time No Known Allergies Allergy Verified 07/03/18 23:51 Medications: Current Medications Amlodipine Besylate (Norvasc) 2.5 mg PO DAILY [facility] Last Admin: 07/13/18 07:56 Dose: 2.5 mg Apixaban (Eliquis) 2.5 mg PO BID [facility] Last Admin: 07/13/18 20:18 Dose: 2.5 mg Aspirin (Ecotrin) 81 mg PO DAILY [facility] Cyanocobalamin (Vitamin B-12) 1,000 mcg PO DAILY [facility] Last Admin: 07/13/18 07:56 Dose: 1,000 mcg Erythromycin (Erythromycin Base 0.5% Oint) 1 gm L EYE BID [facility] Last Admin: 07/13/18 20:22 Dose: Not Given Folic Acid (Folvite) 1 mg PO DAILY [facility] Last Admin: 07/13/18 07:56 Dose: 1 mg Sodium Chloride (Normal Saline 0.9%) 1,000 mls @ 50 mls/hr IV .Q20H [facility] Last Admin: 07/13/18 12:23 Dose: Not Given Mineral Oil/White Petrolatum (Eucerin Cream) 0 gm TOP BIDPRN PRN PRN Reason: Dry Skin Ondansetron HCl (Zofran) 4 mg IVP Q6H PRN PRN Reason: Nausea/Vomiting Polyethylene Glycol (Miralax) 17 gm PO DAILY [facility] Last Admin: 07/13/18 07:56 Dose: 17 gm Senna/Docusate Sodium (Senokot S) 1 tab PO BID [facility] Last Admin: 07/13/18 20:18 Dose: 1 tab Sodium Chloride (Flush - Normal Saline) 10 ml IVF PRN PRN PRN Reason: Saline Flush Tamsulosin HCl (Flomax) 0.4 mg PO DAILY [facility] Last Admin: 07/13/18 07:56 Dose: 0.4 mg
[2018-07-14] MEDS: Sodium Chloride 0.9% 1,000 ML IV SCH (01:00)
[2018-07-14] MEDS ORDERED: Aspirin 81 mg Enteric Coated Tablet PO SCH (09:00)
[2018-07-14] MEDS: Polyethylene Glycol 3350 17 GM Packet PO SCH (09:21)
[2018-07-14] MEDS: Tamsulosin HCl 0.4 MG CAP PO SCH (09:22)
[2018-07-14] MEDS: Senokot S 8.6-50 MG TAB PO SCH ×2 (09:22→21:28)
[2018-07-14] MEDS: Cyanocobalamin (Vitamin B-12) 1,000 MCG TAB PO SCH (09:22)
[2018-07-14] MEDS: Folic Acid 1 MG TAB PO SCH (09:22)
[2018-07-14] MEDS: Amlodipine 5 MG TAB PO SCH (09:22)
[2018-07-14] MEDS: Erythromycin Base 0.5% Oint 1 GM TUBE L EYE SCH ×2 (09:24→21:28)
[2018-07-14] MEDS: Apixaban 2.5 MG TAB PO SCH ×2 (09:24→21:28)
[2018-07-14 20:26] VITALS: BP 152/50; TEMP 98.5
--- NOTE | 2018-07-15 18:03 | DIS ---
DATE OF ADMISSION: 07/03/2018 DATE OF DISCHARGE: 07/14/2018 DISCHARGE DISPOSITION: To prison facility at [facility]. FOLLOWUP: Follow up with Dr. Berry at the nursing facility. PRIMARY CARE PHYSICIAN: Sreekanth Bailey M.D. DISCHARGE MEDICATIONS: 1. Amlodipine 2.5 mg daily. 2. Vitamin B12 and folic acid daily. 3. Flomax 0.4 mg daily. 4. Eliquis 2.5 mg b.i.d. BRIEF HOSPITAL COURSE: The patient is an 88-year-old male with coronary artery disease, atrial fibri llation on anticoagulation, benign prostatic hypertrophy, presented to the hospital with altered ment ation. Please refer to the history and physical for further details dated 07/03/2018. The patient was admitted to the hospital with a diagnosis of toxic metabolic encephalopathy secondary to urinary tract infection. Please note that urine cultures were not sent on admission. I assumed the care of this patient on 07/09/2018. The patient was also seen by Infectious Disease, Dr. Tatum. He has completed IV antibiotics during this hospital stay. A right upper quadrant ultrasound was al so done to rule out other etiologies. It showed gallbladder sludge. He was also evaluated by neurol ogy, Dr. Yazmin Bradford for altered mentation. Per Dr. Bradford, the patient probably has altered mentation secondary to underlying UTI. There was a delay in the patient's discharge since there was no family available. Apparently, the enzo hurtado's sister was contacted. She assisted with the prison facility placement. FINAL DIAGNOSES: 1. Toxic metabolic encephalopathy. 2. Sepsis with acute organ dysfunction secondary to urinary tract infection. 3. Chronic atrial fibrillation on anticoagulation. 4. Acute kidney injury on chronic kidney disease stage 2. His maximum creatinine was 1.33, at disch arge is 0.98. 5. Elevated troponin secondary to demand ischemia/sepsis. 6. Benign prostatic hypertrophy. 7. Chronic indwelling Traore catheter. 8. Folic acid deficiency. His folic acid was 6.1. 9. Moderate protein energy malnutrition. 10. Suspected underlying dementia. Plan of care was discussed with the patient. He stated understanding. Total time coordinating the discharge of this patient was 38 minutes.
== END 2018-07-14 21:46 | DRG 698 ==
LOC: ERS 18:20 → 2NO 21:22 → T4-B 07-05 19:27
PROVIDERS: ADMIT Internal Medicine Infectious Disease; ATTEND Internal Medicine Infectious Disease
DX: T83.511A Infection and inflammatory reaction due to indwelling urethral catheter, initial encounter (principal); A41.9 Sepsis, unspecified organism; G92 Toxic encephalopathy; R65.20 Severe sepsis without septic shock; N17.9 Acute kidney failure, unspecified; I24.8 Other forms of acute ischemic heart disease; E44.0 Moderate protein-calorie malnutrition; Z68.1 Body mass index [BMI] 19.9 or less, adult; N39.0 Urinary tract infection, site not specified; I25.10 Atherosclerotic heart disease of native coronary artery without angina pectoris; N40.0 Benign prostatic hyperplasia without lower urinary tract symptoms; E78.5 Hyperlipidemia, unspecified; I48.2 Chronic atrial fibrillation; Z79.01 Long term (current) use of anticoagulants; Z95.2 Presence of prosthetic heart valve; E86.0 Dehydration; I12.9 Hypertensive chronic kidney disease with stage 1 through stage 4 chronic kidney disease, or unspecified chronic kidney disease; N18.2 Chronic kidney disease, stage 2 (mild); Z96.0 Presence of urogenital implants; E53.8 Deficiency of other specified B group vitamins; F03.90 Unspecified dementia, unspecified severity, without behavioral disturbance, psychotic disturbance, mood disturbance, and anxiety; B95.7 Other staphylococcus as the cause of diseases classified elsewhere; I48.0 Paroxysmal atrial fibrillation
CPT/HCPCS: 36415; 76705; 80048; 80053; 80069; 82565; 82607; 82746; 83605; 83735; 85014; 85018; 85025; 85049; 85610; 85730; 90471; 90670; 93005; G0009; J0696; J1644; J2060; J7050